=== PATIENT | female | born 1960 | race Caucasian/White ===

== ENCOUNTER 2019-10-23 11:58 | Outpatient (CLI) | payer BC, SELFPAY ==
--- NOTE | 2019-10-23 12:10 | CT_ITS ---
WS: [id number] CT ABDOMEN AND PELVIS NONCONTRAST HISTORY: FLANK PAIN, HEMATURIA TECHNIQUE: Imaging performed through the abdomen and pelvis. Coronal and sagittal reformats are submi tted. All CT scans at [facility] use at least one of these dose optimization techniques: automated exposure control; mA and/or kV adjustment per patient size (includes targeted exams where d ose is matched to clinical indication); or iterative reconstruction. DLP: 1025.39 mGycm COMPARISON: 02/06/2017 Lower thorax: Lung bases are clear. No hiatal hernia. Liver: Mild hepatomegaly. No mass or bile duct dilatation. Gallbladder: Prior cholecystectomy. Pancreas: No abnormality on this unenhanced study. Head and proximal body are poorly visualized due t o adjacent bowel. Spleen: Normal. Adrenal glands: Well-circumscribed LEFT adrenal mass measures 3.0 x 3.0 cm. This mass has been previo usly described over multiple prior years and stable. Consistent with a benign lesion. Normal RIGHT ad renal gland. Right kidney: Normal size with no stones, masses or atrophy. Left kidney: Normal size with no stones, mass or atrophy. Abdominal aorta and IVC are unremarkable. No free fluid, intraperitoneal air or significant lymphadenopathy. GI tract: Moderate fecal retention throughout the GI tract. Cecum is very lonely placed with in the a dnexa. The appendix is negative. No obstruction. No significant diverticular disease. Abdominal wall: Postsurgical changes along the ventral abdominal wall. There is a small hernia contai singh fat along the inferior surgical site. Pelvis: Normal. Uterus is midline. Minimally distended bladder. No adnexal masses. Calcifications in the pelvis are thought to be phleboliths. Osseous structures: Unremarkable. CT/CT kidney stone [id number] IMPRESSION: 1. No renal calcifications or obstruction. 2. Mild hepatomegaly. 3. Long-term stability LEFT adrenal mass. 4. No appendicitis. Report called and message left for report to be reviewed by Subhash Gama.
== END 2019-10-23 11:59 | disposition home or self-care (01) ==
LOC: RADWPI 12:06
PROVIDERS: Family Provider Family Medicine; PCP Family Medicine; Visit Provider Nurse Practitioner Family
DX: R10.9 Unspecified abdominal pain (principal); R31.9 Hematuria, unspecified; R16.0 Hepatomegaly, not elsewhere classified; E27.9 Disorder of adrenal gland, unspecified
CPT/HCPCS: 74176

== ENCOUNTER 2020-03-16 08:46 | Outpatient (CLI) | payer BC, SELFPAY ==
--- NOTE | 2020-03-16 08:56 | FL_ITS ---
WS: [id number] UPPER GI WITH AIR TECHNICAL: Double contrast upper GI with thin and thick barium FLUOROSCOPY TIME: 3.7 minutes CLINICAL INFORMATION: ABDOMINAL PAIN COMPARISON: None. FINDINGS: Swallowing: No aspiration or penetration. Esophagus: Mild esophageal dysmotility with slightly delayed emptying. Small esophageal hiatal hernia . Gastroesophageal reflux: Mild reflux in the upright and supine position to the midesophagus. Stomach: Normal double contrast stomach. Normal gastric emptying. Duodenum: Duodenal bulb and C-loop are normal. Other findings: None. FL/FL upper GI w air* [id number] IMPRESSION: 1. Mild esophageal dysmotility with slightly delayed emptying. No evidence of high-grade stricture or obstructing mass. 2. Small esophageal hiatal hernia with mild reflux visualized in the upright a nd supine position to the midesophagus. 3. Normal double contrast stomach and duodenum. 4. Normal gastric emptying.
== END 2020-03-16 08:47 | disposition home or self-care (01) ==
PROVIDERS: PCP Family Medicine; Visit Provider Nurse Practitioner Family
DX: R10.9 Unspecified abdominal pain (principal); K44.9 Diaphragmatic hernia without obstruction or gangrene
CPT/HCPCS: 74246

== ENCOUNTER 2020-11-23 11:24 | Outpatient (CLI) | payer BC, OTHER, SELFPAY ==
[2020-11-23 12:00] VITALS: BP 198/102; PULSE 83; RESP 16; TEMP 36.8; O2SAT 97; BMI 27.3
[2020-11-23 12:36] VITALS: BP 190/104; PULSE 83; RESP 16; TEMP 36.6; O2SAT 96
[2020-11-23 13:32] VITALS: BP 184/104; PULSE 95; RESP 16; TEMP 36.8
== END 2020-11-23 11:25 | disposition home or self-care (01) ==
LOC: OPS 11:28
PROVIDERS: PCP Family Medicine; Visit Provider Family Medicine
DX: U07.1 COVID-19 (principal)
CPT/HCPCS: 96365

== ENCOUNTER 2021-02-26 11:08 | Inpatient (IN) | payer OTHER, SELFPAY ==
[2021-02-26] VITALS (35 sets, daily range): BP systolic 158–255; BP diastolic 88–150; PULSE 71–92; RESP 12–26; TEMP 36.8; O2SAT 93–100
--- NOTE | 2021-02-26 11:31 | ECG_ITS ---
[facility] Test Date: 2021-02-26 Pat Name: Wanda Balbuena Department: Room: Gender: Female Deputy Editor In Chief: : 1960 Requested By: Camille Ag Order Number: [id number] Stephania MD: Patric Kirkland M.D. Measurements Intervals [place] Rate: 78 P: 40 VT: 145 QRS: -14 QRSD: 101 T: 21 QT: 357 QTc: 407 Interpretive Statements SINUS RHYTHM POSSIBLE LEFT ATRIAL ENLARGEMENT [-0.1mV P-WAVE IN V1/V2] LOW QRS VOLTAGE IN PRECORDIAL LEADS [QRS DEFLECTION < 1.0 mV IN CHEST LEADS] POSSIBLE LEFT VENTRICULAR HYPERTROPHY [VOLTAGE CRITERIA PLUS LAE OR QRS WIDENING] POSSIBLE ANTERIOR MYOCARDIAL INFARCTION , PROBABLY OLD [30 ms Q WAVE IN V3/V4, OR R < 0.2 mV IN V4] Compared to ECG 10/14/2017 22:20:06 Low QRS voltage now present Sinus bradycardia no longer present Myocardial infarct finding still present Electronically Signed On 03-01-2021 17:32:58 ELECTRIC MULE DRIVER by Ptaric Kirkland M.D. [id number]
--- NOTE | 2021-02-26 11:44 | CTR_ITS ---
PROCEDURE INFORMATION: Exam: CT Head Without Contrast Exam date and time: 02/26/2021 11:44 AM Age: 60 years old Clinical indication: Numbness / parasthesia; Bilateral; Patient HX: C/O HTN GREEN and numbness/tingling arms and face; Additional info: Headache associated with numbness TECHNIQUE: Imaging protocol: Computed tomography of the head without contrast. Radiation optimization: All CT scans at this facility use at least one of these dose optimization techniques: automated exposure control; mA and/or kV adjustment per patient size (includes targeted exams where dose is matched to clinical indication); or iterative reconstruction. COMPARISON: CT head wo con* [id number] 10/14/2017 7:41 PM RADIATION DOSE METRICS: Total DLP (mGy-cm): 839.37 FINDINGS: Brain: No acute appearing brain parenchymal abnormality. No intracranial hemorrhage. No extraaxial fluid collections. There is mild diffuse brain atrophy. Cerebral ventricles: No hydrocephalus. Paranasal sinuses: Mucoperiosteal thickening, possibly with a small amount of fluid, in the sphenoid sinus. Mastoid air cells: The mastoid air cells are aerated. Bones/joints: No calvarial fracture. Soft tissues: No acute soft tissue abnormality. CT/CT head wo con* [id number] IMPRESSION: No acute intracranial abnormality. Radiation Dose CTDIVOL = (mGy): DLP = 839.37 (mGy-cm)
[2021-02-26 12:22] LABS: ABG PCO2 34.8 mmHg (35-45); Alveolar-Arterial Oxygen Gradi 3.1 mmHg (5-10); Arterial Blood Gas Hematocrit 47.5 % (37-47); Base Excess ABG 4.2 mmol/L (-2.0-2.0); Blood Gas Allen Test Pos; Blood Gas Operator Identificat GD; Blood Gas Sample Site Radial, left; Blood Gas Sample Type Arterial; Carboxyhemoglobin 0.5 %THgb (0.4-20.1); HCO3 ABG 27.2 mmol/L (22-26); HGB O2 Sat 96.4 % (95-100); Ionized Calcium Level - ABG 1.2 mmol/L (1.1-1.4); Methemoglobin 0.3 % (0.4-1.5); Oxygen Device ROOM AIR; Oxygen Saturation ABG 97.3; PO2 ABG 81.6 mmHg (80.0-100.0); Potassium Level - ABG 3.7 mmol/L (3.5-5.0); Total Hemoglobin 15.5 g/dL (12-16)
[2021-02-26 12:24] LABS: Basophils % 0.5 %; Eosinophils # 0.1 10^3/uL (0.0-0.8); Eosinophils % 0.9 %; Hematocrit 43.7 % (37.0-47.0); Hemoglobin 14.8 g/dL (11.5-15.3); Mean Corpuscular HGB Conc 33.9 g/dL (30.0-36.0); Mean Corpuscular Hemoglobin 30.2 pg (28.0-34.0); Mean Corpuscular Volume 89.2 fl (81-99); Mean Platelet Volume 12.3 fL (7.4-10.4); Monocytes # 0.6 10^3/uL (0.2-0.9); Monocytes % 7.3 %; Neutrophils # 5.32 10^3/uL (1.8-7.7); Neutrophils % 65.9 %; Nucleated Red Blood Cells % 0 %; Platelet Count 244 10^3/cmm (130-400); Red Cell Distribution Width 13.1 % (12.1-15.1); White Blood Count 8.1 10^3/uL (4.0-10.0)
--- NOTE | 2021-02-26 12:30 | ED_ITS ---
HPI - Neuro Symptoms/Deficit General: Chief Complaint: ER Hold Stated Complaint: HTN:H/A,NUMBNESS,TINGLING IN FINGERS Time Seen by Provider: 02/26/21 11:53 History of Present Illness: HPI Narrative: Ms Balbuena is a 60-year-old lady with history of hypertension who presents to the emergency department due to numbness and cramping. She reports a longstanding history of intermittent episodes with low potassium that typically result in similar symptoms. Few nights ago she started having symptoms however after drinking some coffee this improved. Over the past 24 hours she has had near constant symptoms. She describes weakness, headache, generalized malaise, and tingling throughout the body as well as muscle cramps. There is no focality of her symptoms. These feel similar to prior episodes. Intensity is moderate to severe. Course has persisted. No other specific exacerbating or relieving factors identified. Review of Systems General: Reports: 10 or more systems reviewed and unremarkable except in HPI and below PFSH ED PFSH: Medical History (Updated 03/02/21 @ 00:08 by Casey Gaona MD) Diabetes Hypertension Physical Exam Narrative: EXAM NARRATIVE: GENERAL/CONSTITUTIONAL -mildly ill-appearing. No acute distress. Eyes - PERRL, no conjunctival injection ENMT - Atraumatic external nose and ears. Moist mucous membranes NECK - supple. trachea midline CARDIOVASCULAR - regular rate and rhythm. Peripheral pulses 2+ and equal RESPIRATORY -clear to auscultation bilaterally. ABDOMEN/GI - Nontender/Nondistended. MSK - Extremities without obvious deformity or tenderness to palpation SKIN - Warm, Dry NEURO - alert and appropriately oriented. Cranial nerves II through XII intact. Coordination, gait, sensation, motor intact with exception of subjective bilateral tingling in the hands and feet. These are identical on both sides as reported by the patient. PSYCH - Appropriate mood and affect Course ED course: - Patient was seen and evaluated by me at bedside - Patient placed on cardiac monitors, IV access obtained - Initial evaluation notable for exam as noted above, no focal neurologic findings. Patient is hypertensive. - Labs notable for no significant hematologic abnormality. Metabolic panel without acute abnormality or evidence of endorgan dysfunction with exception of neurologic symptoms. Potassium is within normal range however additional potassium ordered given possibility of increased susceptibilities/sensitivity to potassium below 4. - Imaging notable for no acute abnormality identified on head CT. Chest x-ray negative. Given that there are no focal findings consistent with a vascular distribution I do not feel that ED CTA imaging is needed at this time. - Attempted multiple rounds of IV antihypertensive medications without significant improvement or sustained improvement. - Upon serial reexamination after treatment the patient was similar - Based on patient history, evaluation, labs, and imaging as interpreted the most likely cause of the patient's condition is hypertensive urgency versus emergency - The patient was initially reticent for admission however after further discussion was amenable to admission. - Discussed case with hospitalist service, patient to be admitted to the hospital for further management and evaluation. Ray valle ordered. - Patient was admitted without further deterioration or significant events. Vital Signs: Vital signs: Vital Signs Temperature 97.5 F L 02/28/21 13:37 Pulse Rate 55 L 02/28/21 13:37 Respiratory Rate 16 02/28/21 13:37 Blood Pressure 168/90 02/28/21 13:37 Pulse Oximetry 96 02/28/21 13:37 MDM - Neuro Symptoms/Deficit Medical Records: Attestation: I reviewed the patient's medical records. Lab Data: Attestation: I reviewed the patient's lab results. Labs: Lab Results 02/26/21 02/26/21 02/26/21 12:05 12:15 12:15 WBC 8.1 10^3/uL 10^3/ uL (4.0-10.0) RBC 4.90 10^6/uL 10^6 /uL (4.1-5.3) Hgb 14.8 g/dL g/dL (11.5-15.3) Hct 43.7 % % (37.0-47.0) MCV 89.2 fl fl (81-99) MCH 30.2 pg pg (28.0-34.0) MCHC 33.9 g/dL g/dL (30.0-36.0) RDW 13.1 % % (12.1-15.1) Plt Count 244 10^3/cmm 10^3 /cmm (130-400) MPV 12.3 fL H fL (7.4-10.4) Neut % (Auto) 65.9 % % Lymph % (Auto) 25.0 % % [place] % (Auto) 7.3 % % Eos % (Auto) 0.9 % % Baso % (Auto) 0.5 % % Neut # (Auto) 5.32 10^3/uL 10^3 /uL (1.8-7.7) Lymph # (Auto) 2.0 10^3/uL 10^3/ uL (0.8-4.8) [place] # (Auto) 0.6 10^3/uL 10^3/ uL (0.2-0.9) Eos # (Auto) 0.1 10^3/uL 10^3/ uL (0.0-0.8) Baso # (Auto) 0.0 10^3/uL 10^3/ uL (0.0-0.1) Nucleated RBC % (a uto) 0 % % Nucleated RBCs # 0.0 /100WBC /100W BC Specimen Type Arterial Sample Site Radial, left ABG pH 7.50 H (7.35-7.45) ABG pCO2 34.8 mmHg L mmHg (35-45) ABG pO2 81.6 mmHg mmHg (80.0-100.0) ABG HCO3 27.2 mmol/L H mmo l/L (22-26) ABG O2 Saturation 97.3 ABG Base Excess 4.2 mmol/L H mmol /L (-2.0-2.0) Chele Test Pos A-a O2 Gradient 3.1 mmHg L mmHg (5-10) Hematocrit 47.5 % H % (37-47) Hgb O2 Saturation 96.4 % % (95-100) Carboxyhemoglobin 0.5 %THgb %THgb (0.4-20.1) Methemoglobin 0.3 % L % (0.4-1.5) Total Hemoglobin 15.5 g/dL g/dL (12-16) Sodium 143.0 mmol/L mmol /L 141 mmol/L mmol/L (131-143) (136-145) Potassium 3.7 mmol/L mmol/L 3.7 mmol/L mmol/L (3.5-5.0) (3.5-5.1) Glucose 109.0 mg/dL mg/dL 103 mg/dL mg/dL (70-115) (65-115) Ionized Calcium 1.2 mmol/L mmol/L (1.1-1.4) O2 Delivery Device Room air Fine Arts Instructor ID Gd Chloride 103 mmol/L mmol/L (98-107) Carbon Dioxide 23 mmol/L mmol/L (22-29) Anion Gap 18.7 (5-19) BUN 12 mg/dL mg/dL (8-23) Creatinine 0.8 mg/dL mg/dL (0.5-0.9) GFR Calculation 72.9 mL/min L mL/ min (90-130) POC Glucose Estimat Average Gl ucose Hemoglobin A1c Calculated Osmolal ity 292 mOsm/kg mOsm/ kg (285-295) Calcium 8.8 mg/dL mg/dL (8.5-10.5) Magnesium 1.8 mg/dL mg/dL (1.7-2.3) Total Bilirubin AST ALT Alkaline Phosphata se Troponin T Baselin e Troponin T 120 Min [place] Delta Troponin T Troponin T Hi Sens 6Hr Troponin T Hi Sens 6Hr Delta Total Protein Albumin Globulin Triglycerides Cholesterol LDL Cholesterol, C alc HDL Cholesterol LDL/HDL Ratio Cholesterol/HDL Ra nirmala TSH Urine Color Urine Appearance Urine pH Ur Specific Gravit y Urine Protein Urine Glucose (UA) Urine Ketones Urine Blood Urine Nitrate Urine Bilirubin Urine Urobilinogen Ur Leukocyte Doris ase Urine RBC Urine WBC Ur Squamous Epith Cells Amorphous Sediment Urine Bacteria Influenza Type A A g Influenza Type B A g SARS-CoV-2 Ag (Rap id) 02/26/21 02/26/21 02/26/21 12:15 12:15 14:20 WBC RBC Hgb Hct MCV MCH MCHC RDW Plt Count MPV Neut % (Auto) Lymph % (Auto) [place] % (Auto) Eos % (Auto) Baso % (Auto) Neut # (Auto) Lymph # (Auto) [place] # (Auto) Eos # (Auto) Baso # (Auto) Nucleated RBC % (a uto) Nucleated RBCs # Specimen Type Sample Site ABG pH ABG pCO2 ABG pO2 ABG HCO3 ABG O2 Saturation ABG Base Excess Chele Test A-a O2 Gradient Hematocrit Hgb O2 Saturation Carboxyhemoglobin Methemoglobin Total Hemoglobin Sodium Potassium Glucose Ionized Calcium O2 Delivery Device Fine Arts Instructor ID Chloride Carbon Dioxide Anion Gap BUN Creatinine GFR Calculation POC Glucose Estimat Average Gl ucose Hemoglobin A1c Calculated Osmolal ity Calcium Magnesium Total Bilirubin AST ALT Alkaline Phosphata se Troponin T Baselin e 7 ng/L ng/L (0-10) Troponin T 120 Min [place] 7.94 ng/L ng/L (0-10) Delta Troponin T 0.94 ABS# ABS# (0-10) Troponin T Hi Sens 6Hr Troponin T Hi Sens 6Hr Delta Total Protein Albumin Globulin Triglycerides Cholesterol LDL Cholesterol, C alc HDL Cholesterol LDL/HDL Ratio Cholesterol/HDL Ra nirmala TSH 0.85 uIU/mL uIU/m L (0.27-4.20) Urine Color Urine Appearance Urine pH Ur Specific Gravit y Urine Protein Urine Glucose (UA) Urine Ketones Urine Blood Urine Nitrate Urine Bilirubin Urine Urobilinogen Ur Leukocyte Doris ase Urine RBC Urine WBC Ur Squamous Epith Cells Amorphous Sediment Urine Bacteria Influenza Type A A g Influenza Type B A g SARS-CoV-2 Ag (Rap id) 02/26/21 02/26/21 02/26/21 16:20 16:20 18:00 WBC RBC Hgb Hct MCV MCH MCHC RDW Plt Count MPV Neut % (Auto) Lymph % (Auto) [place] % (Auto) Eos % (Auto) Baso % (Auto) Neut # (Auto) Lymph # (Auto) [place] # (Auto) Eos # (Auto) Baso # (Auto) Nucleated RBC % (a uto) Nucleated RBCs # Specimen Type Sample Site ABG pH ABG pCO2 ABG pO2 ABG HCO3 ABG O2 Saturation ABG Base Excess Chele Test A-a O2 Gradient Hematocrit Hgb O2 Saturation Carboxyhemoglobin Methemoglobin Total Hemoglobin Sodium Potassium Glucose Ionized Calcium O2 Delivery Device Fine Arts Instructor ID Chloride Carbon Dioxide Anion Gap BUN Creatinine GFR Calculation POC Glucose Estimat Average Gl ucose Hemoglobin A1c Calculated Osmolal ity Calcium Magnesium Total Bilirubin AST ALT Alkaline Phosphata se Troponin T Baselin e Troponin T 120 Min [place] Delta Troponin T Troponin T Hi Sens 6Hr 6.66 ng/L ng/L (0-10) Troponin T Hi Sens 6Hr Delta -0.34 ng/L L ng/L (0-12) Total Protein Albumin Globulin Triglycerides Cholesterol LDL Cholesterol, C alc HDL Cholesterol LDL/HDL Ratio Cholesterol/HDL Ra nirmala TSH Urine Color Urine Appearance Urine pH Ur Specific Gravit y Urine Protein Urine Glucose (UA) Urine Ketones Urine Blood Urine Nitrate Urine Bilirubin Urine Urobilinogen Ur Leukocyte Doris ase Urine RBC Urine WBC Ur Squamous Epith Cells Amorphous Sediment Urine Bacteria Influenza Type A A g Negative (Negative) Influenza Type B A g Negative (Negative) SARS-CoV-2 Ag (Rap id) Negative (Negative) 02/26/21 02/26/21 02/26/21 20:50 22:41 Unknown WBC RBC Hgb Hct MCV MCH MCHC RDW Plt Count MPV Neut % (Auto) Lymph % (Auto) [place] % (Auto) Eos % (Auto) Baso % (Auto) Neut # (Auto) Lymph # (Auto) [place] # (Auto) Eos # (Auto) Baso # (Auto) Nucleated RBC % (a uto) Nucleated RBCs # Specimen Type Sample Site ABG pH ABG pCO2 ABG pO2 ABG HCO3 ABG O2 Saturation ABG Base Excess Chele Test A-a O2 Gradient Hematocrit Hgb O2 Saturation Carboxyhemoglobin Methemoglobin Total Hemoglobin Sodium Potassium Glucose Ionized Calcium O2 Delivery Device Fine Arts Instructor ID Chloride Carbon Dioxide Anion Gap BUN Creatinine GFR Calculation POC Glucose 206 mg/dL H mg/dL 214 mg/dL H mg/dL (70-110) (70-110) Estimat Average Gl ucose Hemoglobin A1c Calculated Osmolal ity Calcium Magnesium Total Bilirubin AST ALT Alkaline Phosphata se Troponin T Baselin e Troponin T 120 Min [place] Troponin T Troponin T Hi Sens 6Hr Troponin T Hi Sens 6Hr [place] Total Protein Albumin Globulin Triglycerides Cholesterol LDL Cholesterol, C alc HDL Cholesterol LDL/HDL Ratio Cholesterol/HDL Ra nirmala TSH Urine Color Straw (Yellow) Urine Appearance Clear (CLEAR) Urine pH 7 (5-7) Ur Specific Gravit y 1.010 (1.005-1.030) Urine Protein Neg (Negative) Urine Glucose (UA) 1+ H (Normal) Urine Ketones Negative (Negative) Urine Blood 2+ H (Negative) Urine Nitrate Negative (Negative) Urine Bilirubin Neg (Negative) Urine Urobilinogen Norm mg/dL mg/dL (Negative) Ur Leukocyte Doris ase Negative (Negative) Urine RBC 0-4 /hpf H /hpf (0-2) Urine WBC None /hpf /hpf (0-5) Ur Squamous Epith Cells 0-4 /hpf H /hpf (0-5) Amorphous Sediment Not Reportable Urine Bacteria 1+ /hpf H /hpf (NONE) Influenza Type A A g Influenza Type B A g SARS-CoV-2 Ag (Rap id) 02/27/21 02/27/21 02/27/21 05:35 05:35 05:35 WBC 9.4 10^3/uL 10^3/ uL (4.0-10.0) RBC 4.85 10^6/uL 10^6 /uL (4.1-5.3) Hgb 14.3 g/dL g/dL (11.5-15.3) Hct 44.1 % % (37.0-47.0) MCV 90.9 fl fl (81-99) MCH 29.5 pg pg (28.0-34.0) MCHC 32.4 g/dL g/dL (30.0-36.0) RDW 13.2 % % (12.1-15.1) Plt Count 229 10^3/cmm 10^3 /cmm (130-400) MPV 12.6 fL H fL (7.4-10.4) Neut % (Auto) 65.8 % % Lymph % (Auto) 25.6 % % [place] % (Auto) 6.1 % % Eos % (Auto) 1.6 % % Baso % (Auto) 0.6 % % Neut # (Auto) 6.19 10^3/uL 10^3 /uL (1.8-7.7) Lymph # (Auto) 2.4 10^3/uL 10^3/ uL (0.8-4.8) [place] # (Auto) 0.6 10^3/uL 10^3/ uL (0.2-0.9) Eos # (Auto) 0.2 10^3/uL 10^3/ uL (0.0-0.8) Baso # (Auto) 0.1 10^3/uL 10^3/ uL (0.0-0.1) Nucleated RBC % (a uto) 0 % % Nucleated RBCs # 0.0 /100WBC /100W BC Specimen Type Sample Site ABG pH ABG pCO2 ABG pO2 ABG HCO3 ABG O2 Saturation ABG Base Excess Chele Test A-a O2 Gradient Hematocrit Hgb O2 Saturation Carboxyhemoglobin Methemoglobin Total Hemoglobin Sodium 136 mmol/L mmol/L (136-145) Potassium 4.5 mmol/L mmol/L (3.5-5.1) Glucose 193 mg/dL H mg/dL (65-115) Ionized Calcium O2 Delivery Device Fine Arts Instructor ID Chloride 100 mmol/L mmol/L (98-107) Carbon Dioxide 25 mmol/L mmol/L (22-29) Anion Gap 15.5 (5-19) BUN 10 mg/dL mg/dL (8-23) Creatinine 0.8 mg/dL mg/dL (0.5-0.9) GFR Calculation 72.9 mL/min L mL/ min (90-130) POC Glucose Estimat Average Gl ucose 206 Hemoglobin A1c 8.8 % H % (4.0-6.0) Calculated Osmolal ity 286 mOsm/kg mOsm/ kg (285-295) Calcium 8.6 mg/dL mg/dL (8.5-10.5) Magnesium Total Bilirubin 0.2 mg/dL mg/dL (0.15-1.2) AST 25 U/L U/L (0-32) ALT 27 U/L U/L (0-33) Alkaline Phosphata se 86 IU/L IU/L (35-105) Troponin T Baselin e Troponin T 120 Min [place] Troponin T Troponin T Hi Sens 6Hr Troponin T Hi Sens 6Hr [place] Total Protein 7.5 g/dL g/dL (6.6-8.7) Albumin 4.2 g/dL g/dL (3.5-5.2) Globulin 3.3 g/dL g/dL (1.3-4.6) Triglycerides 134 mg/dL mg/dL (0-150) Cholesterol 208 mg/dL H mg/dL (0-200) LDL Cholesterol, C alc 131 mg/dL H mg/dL (50-129) HDL Cholesterol 50 mg/dL L mg/dL (60-100) LDL/HDL Ratio 2.62 RATIO RATIO (0.00-3.22) Cholesterol/HDL Ra nirmala 4.16 mg/dL mg/dL (0.0-4.40) TSH Urine Color Urine Appearance Urine pH Ur Specific Gravit y Urine Protein Urine Glucose (UA) Urine Ketones Urine Blood Urine Nitrate Urine Bilirubin Urine Urobilinogen Ur Leukocyte Doris ase Urine RBC Urine WBC Ur Squamous Epith Cells Amorphous Sediment Urine Bacteria Influenza Type A A g Influenza Type B A g SARS-CoV-2 Ag (Rap id) EKG Data^: EKG 1: Attestation: I personally reviewed and interpreted this EKG as follows: EKG interpretation date: 02/26/21 EKG interpretation time: 12:18 Interpretation: Twelve-lead EKG shows a regular rhythm at a rate of 78. MD interval 145, QRS duration 101, QTc 407. Left axis deviation. Interpretation: Sinus rhythm. Nonspecific ST segment abnormalities. Discharge Plan Discharge Patient Disposition: Admitted As Inpatient Admit Provider: Justin Osuna Clinical Impression: Hypertensive emergency, Tingling Condition: Stable Discharge Diet: Cardiac Discharge Activity: Resume usual activity Coding Level of Care Code ED Mold Cutting Machine Operator for Shelton Corona
[2021-02-26 12:49] LABS: Anion Gap 18.7 (5-19); Blood Urea Nitrogen 12 mg/dL (8-23); Calcium 8.8 mg/dL (8.5-10.5); Carbon Dioxide 23 mmol/L (22-29); Chloride 103 mmol/L (98-107); Glomerular Filtration Rate 72.9 mL/min (90-130); Glucose 103 mg/dL (65-115); Magnesium 1.8 mg/dL (1.7-2.3); Osmolality Calculated 292 mOsm/kg (285-295); Potassium 3.7 mmol/L (3.5-5.1); Sodium 141 mmol/L (136-145)
[2021-02-26] MEDS: potassium chloride ER 20 mEq Tablet 40 MEQ PO (13:20)
[2021-02-26] MEDS: acetaminophen 1,000 MG/100 ML PIGGYBACK 400 MG IV (13:28)
[2021-02-26] MEDS: labetalol 5 mg/mL SDV 20mL 20 MG IVP ×2 (13:31→19:12)
[2021-02-26] MEDS: magnesium sulfate premix 2 GM/50 ML PIGGYBACK IV (13:33)
[2021-02-26 13:37] LABS: Thyroid Stimulating Hormone 0.85 uIU/mL (0.27-4.20)
[2021-02-26] MEDS: cloNIDine 0.1 mg Tablet 0.3 MG PO (13:49)
[2021-02-26 14:03] LABS: Troponin(5th) Baseline 7 ng/L (0-10)
[2021-02-26 14:06] LABS: Bilirubin Urine Neg (Negative); Blood Urine 2+ (Negative); Glucose Urine UA 1+ (Normal); Ketones Urine Negative (Negative); Nitrate Urine Negative (Negative); Protein Urine Neg (Negative); Urine Appearance Clear (CLEAR); Urine Color Straw (Yellow); Urobilinogen Urine Norm (Negative); pH Urine 7 (5-7)
[2021-02-26 14:07] LABS: Add Urine Microscopic? YES; Leukocyte Esterase Urine Negative (Negative)
[2021-02-26 14:24] LABS: Bacteria Urine 1+ /hpf; RBC Urine 0-4 /hpf (0-2); Squamous Epithelial Cell Urine 0-4 /hpf (0-5)
[2021-02-26 14:25] LABS: Add Urine Culture? No
[2021-02-26] MEDS: fentaNYL 50 mcg/mL INJ 2mL IVP (14:53)
[2021-02-26] MEDS: ondansetron 2 mg/ML SDV 2 mL 4 MG IVP (15:07)
[2021-02-26] MEDS: sodium chloride 0.9% 1,000 ML 999 ML IV (15:08)
[2021-02-26 15:15] LABS: Troponin 5 2HR 7.94 ng/L (0-10); Troponin 5 2HR Delta 0.94 ABS# (0-10)
--- NOTE | 2021-02-26 15:46 | XRR_ITS ---
PROCEDURE INFORMATION: Exam: XR Chest Exam date and time: 02/26/2021 3:46 PM Age: 60 years old Clinical indication: Patient HX: History--shortness of breath, high blood pressure, elevated pulse; Additional info: SOB TECHNIQUE: Imaging protocol: XR of the chest. Views: 1 view. COMPARISON: CR Chest 1 [place] [id number] 10/14/2017 4:53 PM FINDINGS: Lungs: Unremarkable. No consolidation. Pleural spaces: Unremarkable. No pleural effusion. No pneumothorax. Heart/Mediastinum: Unremarkable. No cardiomegaly. Bones/joints: Unremarkable. XR/XR chest 1V portable [id number] IMPRESSION: No acute findings. Radiation Dose CTDIVOL = (mGy): DLP = (mGy-cm)
[2021-02-26 17:00] LABS: Influenza A by IFA Negative (Negative); Influenza B by IFA Negative (Negative); SARS Covid-2 Antigen Negative (Negative)
[2021-02-26] MEDS: ketorolac 30 mg/mL INJ 15 MG IVP (17:41)
[2021-02-26 18:30] LABS: Troponin 5 6HR 6.66 ng/L (0-10)
[2021-02-26 18:34] LABS: Troponin 5 6HR Delta -0.34 ng/L (0-12)
[2021-02-26] MEDS: morphine 4 mg/mL SDV 1 mL IVP (19:12)
[2021-02-26] MEDS: nicardipine 20 MG/200 ML PREMIX 50 MG IV (19:40)
[2021-02-26 20:53] LABS: Glucose Point of Care 206 mg/dL (70-110)
[2021-02-26 22:44] LABS: Glucose Point of Care 214 mg/dL (70-110)
[2021-02-26] MEDS: insulin glargine 100 units/1 mL 50 UNIT SUBCUT (23:33)
[2021-02-27] VITALS (39 sets, daily range): BP systolic 89–229; BP diastolic 45–167; PULSE 64–104; RESP 11–28; O2SAT 84–98
[2021-02-27] MEDS: ondansetron 2 mg/ML SDV 2 mL 4 MG IVP (00:33)
[2021-02-27] MEDS: nicardipine 20 MG/200 ML PREMIX 30 MG IV (01:00)
[2021-02-27] MEDS: cloNIDine 0.1 mg Tablet 0.3 MG PO ×3 (01:02→18:01)
[2021-02-27] MEDS: cyclobenzaprine 10 mg Tablet PO (05:42)
[2021-02-27 05:47] LABS: Basophils # 0.1 10^3/uL (0.0-0.1); Basophils % 0.6 %; Eosinophils # 0.2 10^3/uL (0.0-0.8); Eosinophils % 1.6 %; Hematocrit 44.1 % (37.0-47.0); Hemoglobin 14.3 g/dL (11.5-15.3); Lymphocytes # 2.4 10^3/uL (0.8-4.8); Lymphocytes % 25.6 %; Mean Corpuscular HGB Conc 32.4 g/dL (30.0-36.0); Mean Corpuscular Hemoglobin 29.5 pg (28.0-34.0); Mean Corpuscular Volume 90.9 fl (81-99); Mean Platelet Volume 12.6 fL (7.4-10.4); Monocytes # 0.6 10^3/uL (0.2-0.9); Monocytes % 6.1 %; Neutrophils # 6.19 10^3/uL (1.8-7.7); Neutrophils % 65.8 %; Nucleated Red Blood Cells % 0 %; Platelet Count 229 10^3/cmm (130-400); Red Blood Count 4.85 10^6/uL (4.1-5.3); Red Cell Distribution Width 13.2 % (12.1-15.1); White Blood Count 9.4 10^3/uL (4.0-10.0)
[2021-02-27 06:27] LABS: Alanine Aminotransferase 27 U/L (0-33); Albumin Level 4.2 g/dL (3.5-5.2); Alkaline Phosphatase 86 IU/L (35-105); Anion Gap 15.5 (5-19); Aspartate Amino Transferase 25 U/L (0-32); Blood Urea Nitrogen 10 mg/dL (8-23); Calcium 8.6 mg/dL (8.5-10.5); Carbon Dioxide 25 mmol/L (22-29); Chloride 100 mmol/L (98-107); Chol HDL Ratio 4.16 mg/dL (0.0-4.40); Cholesterol 208 mg/dL (0-200); Estmated Average Glucose 206; Globulin 3.3 g/dL (1.3-4.6); Glomerular Filtration Rate 72.9 mL/min (90-130); Glucose 193 mg/dL (65-115); HDL Cholesterol 50 mg/dL (60-100); Hemoglobin A1C 8.8 % (4.0-6.0); LDL Cholesterol Calculated 131 mg/dL (50-129); LDL HDL Ratio 2.62 RATIO (0.00-3.22); Osmolality Calculated 286 mOsm/kg (285-295); Potassium 4.5 mmol/L (3.5-5.1); Sodium 136 mmol/L (136-145); Total Bilirubin 0.2 mg/dL (0.15-1.2); Total Protein 7.5 g/dL (6.6-8.7); Triglycerides 134 mg/dL (0-150)
--- NOTE | 2021-02-27 06:34 | P.HP_ITS ---
Providers/Chief Complaint Admitting Physician: Katina Acuña MD Primary Care Provider: Ben Hernández MD Chief Complaint: HTN:H/A,NUMBNESS,TINGLING IN FINGERS History of Present Illness Wanda Balbuena is a 60 year old female that presented to ER with c/o weakness, headache, generalized malaise, and tingling throughout the body. She was noted to have elevated BP 255/140 mmhg for which she received labetalol pushes without significant change in BP. She wass started on nicardipine drip , at time of assessment BP is improved to 168/90 mmhg. She was also given clonidine 0.3mg earlier this afternoon. CT head negative. EKG without significant changes, negative troponin series. Headache improved with better BP control Review of Systems General: Reports: 10 or more systems reviewed and unremarkable except in HPI and below Const: Denies: fever(s), chills or body aches Eyes: Denies: change in vision, blurry vision or photophobia ENMT: Reports: hoarseness; Denies: throat pain, enlarged tonsils, odynophagia or nasal congestion Card: Denies: chest pain, palpitations, irregular heart rhythm, edema, swelling of feet/ankles, lightheadedness, pre-syncope, dyspnea on exertion or orthopnea Resp: Denies: dyspnea, productive cough, non-productive cough, wheezing, stridor, pain on inspiration, change in phlegm color, hemoptysis or chest congestion GI: Denies: abdominal pain, nausea, vomiting, hematemesis, coffee ground emesis, dysphagia, heartburn, diarrhea, constipation, GI cramping, change in stool character, hematochezia or melena : Denies: flank pain, difficulty voiding, dysuria, urinary frequency, urinary urgency, urinary hesitancy or hematuria Musc: Denies: neck pain, back pain, extremity pain, joint swelling, joint warmth or deformity Neuro: Denies: headache(s), numbness in extremities, weakness in extremities, sensory changes, difficulty walking, frequent falls, dizziness, vertigo, behavioral changes, Slurred speech present or seizure-like activity Psych: Denies: anxiety, depression, suicidal ideation or homicidal ideation Endo: Denies: polyuria, polydipsia, tired all the time, cold intolerance or hot flashes Stephen/Lymph: Denies: easy bruising or easy bleeding Medications/Allergies Home Medications Medication Instructions Recorded Confirmed Last Taken Type clonidine HCl 0.3 mg PO TID 02/27/21 02/27/21 Unknown History insulin glargine [Lantus U-100 50 unit SUBCUT BEDTIME 02/27/21 02/27/21 Unknown History Insulin] insulin regular human [Novolin R 10 unit SUBCUT DIRECTED 02/27/21 02/27/21 Unknown History Regular U-100 Insuln] Allergies Allergy/AdvReac Type Severity Reaction Status Date / Time amlodipine Allergy ADR-Headach Verified 02/27/21 00:35 e hydralazine Allergy Unknown Verified 02/27/21 01:17 hydromorphone Allergy ADR-Vomitin Verified 02/26/21 11:26 g lisinopril Allergy ADR-Cough Verified 02/26/21 22:39 metoprolol Allergy ADV-Weaknes Verified 02/27/21 00:53 s Penicillins Allergy Unknown Verified 02/26/21 11:26 PFSH Acute PFSH: Medical History (Updated 02/27/21 @ 06:42 by Katina Acuña MD) Diabetes Hypertension Vitals/I&O/Wt Last Vital Signs Temp 98.3 F 02/26/21 11:21 Pulse 65 02/27/21 06:15 Resp 14 02/27/21 06:15 BP 136/75 02/27/21 06:15 Pulse Ox 95 02/27/21 06:15 02/26/21 02/26/21 02/27/21 14:59 22:59 06:59 Intake Total 150 / 150 1046.25 / 1196.25 273.75 / 1470.00 Balance 150 / 150 1046.25 / 1196.25 273.75 / 1470.00 Weight last 48 hrs Weight 85.275 kg Physical Exam Narrative: EXAM NARRATIVE: General: No acute distress, AO x3 HEENT: PERRLA, pupils bilaterally equal and reactive, pallors not present Chest: Normal vesicular breath sounds, no added sounds, equal good air entry bilaterally CVS: S1-S2 regular, no murmurs, no tachycardia, no gallops, no rubs Abdomen: Soft, nontender, no organomegaly, bowel sounds present Neuro: No focal deficits, no facial deformity, AO x3, power 5/5 in all limbs Data : 02/27/21 05:35 02/27/21 05:35 A&P Assessment and plan (1) Hypertensive urgency: Patient presenting BP >250 systolic, started on nicardipine infusion No signs of end organ damage at this time, normal renal function .CT head neg ative for infarct, no new changes on EKG. Headcahe and tingling improved with BP control Start amlodipine 10mg and lisinopril 10mg overlapping with nicardipine drip for BP control and to transition off the infusion echocardiogram and carotid duplex ordered from ER, will await results of testing lipid panel for risk stratification continue home dose of lantus 50U and sliding scale insulin Status: Acute Attestations Medical Necessity Statement*: Anticipate care to cross >2midnight for above defined care Coding Level of Care Code Acute Roving Technician for Chg Fwd Diagnoses Hypertensive urgency I16.0
[2021-02-27 07:33] LABS: Glucose Point of Care 160 mg/dL (70-110)
[2021-02-27] MEDS: pantoprazole DR 40 mg Tablet PO (09:15)
[2021-02-27] MEDS: insulin lispro 100 unit/1 mL SUBCUT ×3 (09:15→17:58)
--- NOTE | 2021-02-27 09:27 | PC.NURSE ---
0900- Meds/Insulin given prior to breakfast. Alter and oriented. Continue to monitor
[2021-02-27 10:15] LABS: Add Urine Microscopic? YES; Bilirubin Urine Neg (Negative); Blood Urine 2+ (Negative); Glucose Urine UA Trace (Normal); Ketones Urine Negative (Negative); Leukocyte Esterase Urine Negative (Negative); Nitrate Urine Negative (Negative); Protein Urine Neg (Negative); Urine Appearance Clear (CLEAR); Urine Color Straw (Yellow); Urobilinogen Urine Norm (Negative); WBC Urine RARE /hpf (0-5); pH Urine 5 (5-7)
[2021-02-27 10:16] LABS: Add Urine Culture? No; Bacteria Urine TRACE /hpf; RBC Urine 0-4 /hpf (0-2); Squamous Epithelial Cell Urine 0-4 /hpf (0-5)
--- NOTE | 2021-02-27 10:28 | PC.NURSE ---
Dr Bishop, in room consulting with pt.. Dr Bishop, states he will be changing medication orders and not to given the current orders.
[2021-02-27] MEDS: cyclobenzaprine 10 mg Tablet 5 MG PO (10:56)
--- NOTE | 2021-02-27 11:03 | PC.NURSE ---
Dc'd Right AC IV. New IV in Left forearm.
[2021-02-27 13:53] LABS: Glucose Point of Care 228 mg/dL (70-110)
[2021-02-27] MEDS: TRAMadol 50 mg Tablet PO (14:28)
[2021-02-27] MEDS: dilTIAZem 30 mg Tablet PO ×2 (14:28→20:59)
--- NOTE | 2021-02-27 14:46 | P.PN_ITS ---
Subjective Subjective: Interval history: Patient was seen this morning, she continues to complain of diffuse charley horses, no lightheadedness, no dizziness, no chest pain, no palpitations, no blurry vision, is having a headache, she tells me that she takes clonidine 0.3 mg 3 times daily, she has allergies to many of the other blood pressure medications precluding her uses Vitals/I&O/Wt Last Vital Signs Temp 98.3 F 02/26/21 11:21 Pulse 92 02/27/21 13:53 Resp 14 02/27/21 13:53 BP 198/102 02/27/21 12:19 Pulse Ox 95 02/27/21 13:53 02/26/21 02/27/21 02/27/21 22:59 06:59 14:59 Intake Total 1046.25 / 1196.25 273.75 / 1470.00 Balance 1046.25 / 1196.25 273.75 / 1470.00 Weight last 48 hrs Weight 85.275 kg Physical Exam Const: COMMON NORMALS: no acute distress and patient oriented x3 Resp: COMMON NORMALS: normal respiratory effort, No retractions, No use of accessory muscles and clear to auscultation bilaterally AUSCULTATION: clear to auscultation bilaterally Cardio: COMMON NORMALS: regular rate, regular rhythm, S1 normal heart sound present and S2 normal heart sound present RATE: regular rate RHYTHM: regular rhythm HEART SOUNDS: S1 normal heart sound present and S2 normal heart sound present GI: COMMON NORMALS: Normal to inspection, nondistended, normoactive bowel sounds present, Soft to palpation and non-tender PALPATION: Yes Soft to palpation Extremity: COMMON NORMALS: no pedal edema Neuro: COMMON NORMALS: patient oriented x3 Psych: COMMON NORMALS: mental status grossly normal Data : 02/27/21 05:35 02/27/21 05:35 A&P Assessment and plan (1) Hypertensive urgency: Patient presenting BP >250 systolic, started on nicardipine infusion No signs of end organ damage at this time, normal renal function .CT head negative for infarct, no new changes on EKG. Headcahe and tingling improved with BP control echocardiogram and carotid duplex ordered from ER, will await results of testing A1c 8.8, cholesterol 2 8, LDL 131 Continue clonidine 0.3 mg every 8 hours Chlorthalidone 25 mg daily Cardizem 30 mg every 8 hours continue home dose of lantus 50U and sliding scale insulin Status: Acute Attestations Medical Necessity Statement*: Patient requires hospitalization for hypertensive urgency Coding Level of Care Code Acute Greens Keeper for [facility] F[facility] Diagnoses Hypertensive urgency I16.0
[2021-02-27 16:40] LABS: Anion Gap 13.2 (5-19); Blood Urea Nitrogen 13 mg/dL (8-23); Calcium 8.5 mg/dL (8.5-10.5); Carbon Dioxide 27 mmol/L (22-29); Chloride 99 mmol/L (98-107); Glomerular Filtration Rate 72.9 mL/min (90-130); Glucose 225 mg/dL (65-115); Osmolality Calculated 287 mOsm/kg (285-295); Phosphorus 3.7 mg/dL (2.5-4.5); Potassium 4.2 mmol/L (3.5-5.1); Sodium 135 mmol/L (136-145)
[2021-02-27 16:53] LABS: Glucose Point of Care 227 mg/dL (70-110)
[2021-02-27] MEDS: acetaminophen 325 mg Tablet 650 MG PO (18:16)
--- NOTE | 2021-02-27 18:34 | USCV_ITS ---
Wanda Balbuena Age: 60 Gender: F : 1960 Exam Date: 02/27/2021 07:14 Ordering Phys: Casey Gaona MD Technologist: Lauren Mohr Exam Location: [facility] – [place] Indication: Hypertensive urgency, tingling BP: 136 / 75 HR: Rhythm: Sinus Technical Quality: Good MEASUREMENTS (Male / Female) Normal Values 2D ECHO LV Diastolic Diameter PLAX 4.1 cm 4.2 - 5.9 / 3.9 - 5.3 cm LV Systolic Diameter PLAX 2.4 cm LV Chamber Size 4.1 cm IVS Diastolic Thickness 1.5 cm 0.6 - 1.0 / 0.6 - 0.9 cm IVS Systolic Thickness 2.0 cm LVPW Diastolic Thickness 1.2 cm 0.6 - 1.0 / 0.6 - 0.9 cm LVPW Systolic Thickness 1.6 cm RV Chamber Size 2.1 cm LVOT Diameter 1.9 cm LV Ejection Fraction 2D Teich 72.9 % LV Ejection Fraction MOD 2C 79.0 % LV Ejection Fraction 2C AL 82.8 % LA Diameter 3.9 cm LA Width 3.4 cm LA Height 5.3 cm RA Width 2.0 cm RA Height 5.4 cm Aorta at Sinotubular Diameter 2.3 cm M-MODE LV Diastolic Diameter MM 4.8 cm 4.2 - 5.9 / 3.9 - 5.3 cm LV Systolic Diameter MM 2.9 cm LV Ejection Fraction MM Teich 70.4 % IVS Diastolic Thickness MM 1.7 cm 0.6 - 1.0 / 0.6 - 0.9 cm IVS Systolic Thickness MM 1.8 cm LVPW Diastolic Thickness MM 1.1 cm 0.6 - 1.0 / 0.6 - 0.9 cm LVPW Systolic Thickness MM 1.7 cm RV Diastolic Diameter MM 0.8 cm Aortic Annulus Diameter 2.8 cm LA Ao Ratio MM 1.7 MV E Point Septal Separation 0.3 cm DOPPLER AV Peak Velocity 128.0 cm/s LVOT Peak Velocity 121.0 cm/s AV Area Cont Eq vti 2.6 cm squared AV Area Cont Eq pk 2.8 cm squared MV Area PHT 3.0 cm squared Mitral E to A Ratio 0.8 MV E' Velocity 40.0 cm/s Mitral E to MV E' Ratio 12.9 Mitral E to LV E' Lateral Ratio 10.8 Mitral E to LV E' Septal Ratio 16.0 TR Peak Velocity 208.3 cm/s TR Peak Gradient 17.4 mmHg TV Peak E Velocity 51.0 cm/s Right Atrial Pressure 3.0 mmHg Pulmonary Artery Systolic Pressu 20.4 mmHg RV Acceleration Time 0.1 s RV Ejection Time 0.3 s RV AcT/ET 0.4 FINDINGS Left Ventricle Normal left ventricular size. LV systolic function is normal with EF of 55-60%. No regional wall motion abnormalities. Grade 1 diastolic dysfunction Right Ventricle The right ventricle is normal in size and function. Right Atrium The right atrium is normal in size. Left Atrium The left atrium is normal in size. Mitral Valve Structurally normal mitral valve without significant stenosis or prolapse. There is mild mitral regurgitation. Aortic Valve Structurally normal aortic valve without significant sclerosis or stenosis. There is trace aortic regurgitation. Tricuspid Valve Structurally normal tricuspid valve without significant stenosis . Trace tricuspid regurgitation. Insufficient TR jet to calculate RVSP Pulmonic Valve Structurally normal pulmonic valve without significant stenosis. There is no pulmonic regurgitation. Pericardium Normal pericardium without effusion. Aorta Normal ascending aorta dimension. CONCLUSIONS LV systolic function is normal with EF of 55-60%. Grade 1 diastolic dysfunction Trace aortic regurgitation Trace tricuspid regurgitation No comparison studies are available Patric Kirkland MD (Electronically Signed) Final Date: 27 February 2021 18:30 S
--- NOTE | 2021-02-27 18:34 | USR_ITS ---
Arterial ultrasound of the extracerebral carotid and vertebral arteries Clinical indication: Tingling; Additional info: Hypertensive urgency, tingling Technique: Real-time ultrasound with perry scale, duplex Doppler, and color flow imaging was performed to evaluate the extracerebral carotid and vertebral arteries. No prior vascular imaging studies are available for correlation at the time of dictation. Findings: Mild plaque formation and intimal thickening is identified in the visualized carotid arteries. There is normal antegrade flow within the vertebral arteries bilaterally. The peak systolic velocity measurements within the right and left internal carotid arteries are 87 and 98 cm per second respectively. The right systolic velocity ratio is 1.49, while the left systolic velocity ratio is 1.53. These values are well within normal limits. When correlating with NASCET index criteria, no hemodynamically significant ICA stenosis is present. US/CV carotid duplex BI* [id number] Impression: Unremarkable arterial ultrasound of the extracerebral carotid vertebral arteries. Radiation Dose CTDIVOL = (mGy): DLP = (mGy-cm)
[2021-02-27 20:29] LABS: Glucose Point of Care 166 mg/dL (70-110)
[2021-02-27] MEDS: insulin glargine 100 units/1 mL 50 UNIT SUBCUT (20:57)
--- NOTE | 2021-02-27 23:21 | CTR_ITS ---
PROCEDURE INFORMATION: Exam: CT Abdomen And Pelvis Without Contrast Exam date and time: 02/27/2021 11:21 PM Age: 60 years old Clinical indication: Abdominal pain; Generalized; Prior surgery; Surgery date: 6+ months; Surgery type: Colon, gb, appy; Patient HX: C/O abd pain and constipation; Additional info: Pain in abdomen TECHNIQUE: Imaging protocol: Computed tomography of the abdomen and pelvis without contrast. Radiation optimization: All CT scans at this facility use at least one of these dose optimization techniques: automated exposure control; mA and/or kV adjustment per patient size (includes targeted exams where dose is matched to clinical indication); or iterative reconstruction. COMPARISON: [place] [id number] 02/06/2017 9:01 AM RADIATION DOSE METRICS: Total DLP (mGy-cm): 1769.05 FINDINGS: Limitations: The absence of intravenous contrast lessens the sensitivity of this study for solid organ abnormalities. Lungs: There is some dependent atelectasis at the lung bases. There is a small calcified granuloma in the lingula. Liver: There is no focal abnormality within the liver. Gallbladder and bile ducts: There has been a cholecystectomy. Pancreas: The pancreas is normal. Spleen: The spleen is normal. Adrenal glands: There is a 3 cm benign adenoma left adrenal gland which measures less than 10 Hounsfield units on this noncontrast exam not significantly changed from 02/06/2017. Kidneys and ureters: The kidneys are normal. There is no evidence of hydronephrosis. There is no evidence of renal or ureteral calcifications. Stomach and bowel: There is no evidence of colitis/diverticulitis. Appendix: Not identified Intraperitoneal space: There is no evidence of free intraperitoneal fluid. Vasculature: Unremarkable. No abdominal aortic aneurysm. Lymph nodes: Unremarkable. No enlarged lymph nodes. Urinary bladder: Unremarkable as visualized. Reproductive: Unremarkable as visualized. Bones/joints: Unremarkable. No acute fracture. Soft tissues: Unremarkable. CT/CT abdomen pelvis wo con [id number] IMPRESSION: No acute finding Radiation Dose CTDIVOL = (mGy): DLP = 1769.05 (mGy-cm)
--- NOTE | 2021-02-27 23:26 | PC.NURSE ---
Around 2314: Patient c/o abdominal pain. Notified Dr. Floyd, hospitalist. Orders received, see orders.
[2021-02-28] VITALS (7 sets, daily range): BP systolic 152–168; BP diastolic 71–90; PULSE 51–74; RESP 15–18; TEMP 36.4; O2SAT 94–98
[2021-02-28] MEDS: dilTIAZem 30 mg Tablet PO ×2 (03:12→08:40)
[2021-02-28] MEDS: cloNIDine 0.1 mg Tablet 0.3 MG PO ×2 (03:13→13:19)
[2021-02-28 05:52] LABS: Basophils # 0.1 10^3/uL (0.0-0.1); Basophils % 0.8 %; Eosinophils # 0.4 10^3/uL (0.0-0.8); Eosinophils % 5.3 %; Hemoglobin 13.2 g/dL (11.5-15.3); Lymphocytes # 2.3 10^3/uL (0.8-4.8); Lymphocytes % 30.5 %; Mean Corpuscular HGB Conc 32.2 g/dL (30.0-36.0); Mean Corpuscular Hemoglobin 29.6 pg (28.0-34.0); Mean Corpuscular Volume 91.9 fl (81-99); Mean Platelet Volume 12.1 fL (7.4-10.4); Monocytes # 0.8 10^3/uL (0.2-0.9); Monocytes % 10.3 %; Nucleated Red Blood Cells % 0 %; Platelet Count 231 10^3/cmm (130-400); Red Blood Count 4.46 10^6/uL (4.1-5.3); Red Cell Distribution Width 13.2 % (12.1-15.1); White Blood Count 7.4 10^3/uL (4.0-10.0)
[2021-02-28 06:18] LABS: Anion Gap 17.3 (5-19); Blood Urea Nitrogen 16 mg/dL (8-23); Calcium 8.2 mg/dL (8.5-10.5); Carbon Dioxide 23 mmol/L (22-29); Chloride 102 mmol/L (98-107); Creatinine Clr Calc Pharmacy 96.5281; Glomerular Filtration Rate 85.1 mL/min (90-130); Glucose 156 mg/dL (65-115); Magnesium 1.8 mg/dL (1.7-2.3); Osmolality Calculated 290 mOsm/kg (285-295); Phosphorus 3.1 mg/dL (2.5-4.5); Potassium 4.3 mmol/L (3.5-5.1); Sodium 138 mmol/L (136-145)
[2021-02-28 06:41] LABS: Glucose Point of Care 185 mg/dL (70-110)
--- NOTE | 2021-02-28 08:19 | PC.NURSE ---
Around 0400: Patient states she has not had bowel movement in several days. Notified Dr. Acuña. Orders received, see MAY.
[2021-02-28] MEDS: lactulose oral liq 20 gm/30 mL UDC PO (08:40)
[2021-02-28] MEDS: insulin lispro 100 unit/1 mL SUBCUT ×2 (08:41→13:18)
[2021-02-28] MEDS: pantoprazole DR 40 mg Tablet PO (08:41)
--- NOTE | 2021-02-28 10:02 | USR_ITS ---
PROCEDURE INFORMATION: Exam: US Duplex Right Upper Extremity Veins, Limited Exam date and time: 02/28/2021 10:02 AM Age: 60 years old Clinical indication: Swelling (edema) of limb; Upper extremity, right; Additional info: Rgiht arm swelling TECHNIQUE: Imaging protocol: Real-time Duplex ultrasound of the Right Upper Extremity with 2-D perry scale, color Doppler flow and spectral waveform analysis with image documentation. Limited exam focused on the right upper extremity veins. COMPARISON: CT abdomen pelvis wo con [id number] 02/27/2021 11:47 PM FINDINGS: Right deep veins: Unremarkable. Axillary and brachial veins are patent throughout without thrombus. Normal Doppler waveforms. Normal compressibility and/or augmentation response. Visualized internal jugular and subclavian veins are patent. Right superficial veins: There is superficial thrombophlebitis of the basilic vein in the distal arm/antecubital region. The cephalic vein is patent. Soft tissues: Unremarkable. US/[place] [id number] IMPRESSION: 1. No evidence of deep vein thrombosis. 2. Superficial thrombophlebitis of the basilic vein Radiation Dose CTDIVOL = (mGy): DLP = (mGy-cm)
--- NOTE | 2021-02-28 12:24 | P.DS_ITS ---
Discharge Providers Date of Admission: 02/27/21 07:00 Date of Discharge: February 28, 2021 Attending Provider at Admission: Justin Osuna MD Attending Provider at Discharge: Justin Osuna MD Primary Care Provider: Ben Hernández MD Diagnoses at Discharge Discharge Diagnosis (1) Hypertensive urgency: Status: Acute Reason for Visit Reason for Visit: HTN:H/A,NUMBNESS,TINGLING IN FINGERS Hospital Course Hospital Course This is a 60-year female with a past medical history of hypertension, insulin- dependent type 2 days mellitus, who presents to [facility] due to weakness, headache, generalized malaise, tingling throughout her body Patient was admitted to [facility] for hypertensive urgency, CT of the head no acute stroke, carotid artery ultrasound was within normal limits, cardiac echo was within normal, EKG no acute ST-T wave changes, no significant troponin elevation. Managing patient's blood pressure was quite difficult, as patient was resistant to take many blood pressure medications, had multiple nonspecific allergies to blood pressure medications. Nonetheless she was managed with her home clonidine 0.3 mg every 8 hours, chlorthalidone 25 mg daily, with the addition of diltiazem 60 mg daily 12 hours. I chose Cardizem 60 mg every 12 hours, not a typical agent for blood pressure control, but patient was fairly resistant to trying other letter blood pressure medications due to adverse side effects. Patient's blood pressure improved with above agents, discharged with above agents with close follow-up with primary care provider for blood pressure check. Patient was advised she would have chest pain, palpita tions, shortness of breath, or strokelike symptoms call 911 or go to the emergency room. In terms of her type 2 diabetes mellitus, hemoglobin A1c was 8.9, advised to discuss with primary care provider about GLP-1 analogs In terms of her paresthesias, given her hypertensive urgency possible TIA-like symptoms, CT of the head no acute stroke, carotid artery ultrasound was within normal limits, no focal neurologic deficits. Nonetheless I discharged her on aspirin 81 mg daily with 40 mg daily Patient was also found to have superficial thrombophlebitis of the basilic vein near the IV insertion site, with warmth, erythema, swelling and tenderness near the right arm fold. Patient was advised to continue warm compress, keep elevated, doxycycline for antibiotic coverage. Physical Exam Const: COMMON NORMALS: no acute distress and patient oriented x3 Resp: COMMON NORMALS: normal respiratory effort, No retractions, No use of accessory muscles and clear to auscultation bilaterally AUSCULTATION: clear to auscultation bilaterally Cardio: COMMON NORMALS: regular rate, regular rhythm, S1 normal heart sound present and S2 normal heart sound present RATE: regular rate RHYTHM: regular rhythm HEART SOUNDS: S1 normal heart sound present and S2 normal heart sound present GI: COMMON NORMALS: Normal to inspection, nondistended, normoactive bowel sounds present, Soft to palpation and non-tender PALPATION: Yes Soft to palpation Extremity: COMMON NORMALS: no pedal edema Neuro: COMMON NORMALS: patient oriented x3 Psych: COMMON NORMALS: mental status grossly normal Discharge Data Data Completed and Pending: Completed Studies During Hospitalization Category Date Time Status CT abdomen pelvis wo con [id number] Rout ine Cat Scan 02/27/21 23:[address] head wo con* [id number] Urgent Cat Scan 02/26/21 11:44 Completed XR chest 1V ridge ble [id number] Urgent Exams 02/26/21 15:46 Completed CV carotid duplex BI* [id number] Routine Ultrasound 02/27/21 18:34 [place] [id number] Stat Ultrasound 02/28/21 10:02 Completed CV. echo complete * [id number] Routine Ultrasound 02/27/21 18:34 Completed Pending at discharge Category Date Time Status Basic Metabolic P mejia AM LABS Lab 03/01/21 04:00 Ordered Basic Metabolic P mejia AM LABS Lab 03/02/21 04:00 Ordered Complete Blood Co unt w/Auto AM LABS Lab 03/01/21 04:00 Ordered Complete Blood Co unt w/Auto AM LABS Lab 03/02/21 04:00 Ordered Magnesium AM LABS Lab 03/01/21 04:00 Ordered Magnesium AM LABS Lab 03/02/21 04:00 Ordered Phosphorus AM LAB S Lab 03/01/21 04:00 Ordered Phosphorus AM LAB S Lab 03/02/21 04:00 Ordered Labs from last 24 hours 02/28/21 02/28/21 02/28/21 06:30 05:26 05:26 WBC RBC Hgb Hct MCV MCH MCHC RDW Plt Count MPV Neut % (Auto) Lymph % (Auto) [place] % (Auto) Eos % (Auto) Baso % (Auto) Neut # (Auto) Lymph # (Auto) [place] # (Auto) Eos # (Auto) Baso # (Auto) Nucleated RBC % (a uto) Nucleated RBCs # Sodium Cancelled 138 Potassium Cancelled 4.3 Chloride Cancelled 102 Carbon Dioxide Cancelled 23 Anion Gap Cancelled 17.3 BUN Cancelled 16 Creatinine Cancelled 0.7 GFR Calculation Cancelled 85.1 L Glucose Cancelled 156 H POC Glucose 185 H Calculated Osmolal ity Cancelled 290 Calcium Cancelled 8.2 L Phosphorus 3.1 Magnesium 1.8 02/28/21 02/27/21 02/27/21 05:26 19:50 16:28 WBC 7.4 RBC 4.46 Hgb 13.2 Hct 41.0 MCV 91.9 MCH 29.6 MCHC 32.2 RDW 13.2 Plt Count 231 MPV 12.1 H Neut % (Auto) 53.0 Lymph % (Auto) 30.5 [place] % (Auto) 10.3 Eos % (Auto) 5.3 Baso % (Auto) 0.8 Neut # (Auto) 3.90 Lymph # (Auto) 2.3 [place] # (Auto) 0.8 Eos # (Auto) 0.4 Baso # (Auto) 0.1 Nucleated RBC % (a uto) 0 Nucleated RBCs # 0.0 Sodium Potassium Chloride Carbon Dioxide Anion Gap BUN Creatinine GFR Calculation Glucose POC Glucose 166 H 227 H Calculated Osmolal ity Calcium Phosphorus Magnesium 02/27/21 02/27/21 16:14 13:39 WBC RBC Hgb Hct MCV MCH MCHC RDW Plt Count MPV Neut % (Auto) Lymph % (Auto) [place] % (Auto) Eos % (Auto) Baso % (Auto) Neut # (Auto) Lymph # (Auto) [place] # (Auto) Eos # (Auto) Baso # (Auto) Nucleated RBC % (a uto) Nucleated RBCs # Sodium 135 L Potassium 4.2 Chloride 99 Carbon Dioxide 27 Anion Gap 13.2 BUN 13 Creatinine 0.8 GFR Calculation 72.9 L Glucose 225 H POC Glucose 228 H Calculated Osmolal ity 287 Calcium 8.5 Phosphorus 3.7 Magnesium 2.0 Vitals: Last Vital Signs Temp 98.3 F 02/26/21 11:21 Pulse 55 L 02/28/21 06:00 Resp 18 02/28/21 03:46 BP 157/77 02/28/21 03:46 Pulse Ox 96 02/28/21 03:46 Discharge Plan Discharge Patient Disposition: Home Condition: Stable Prescriptions: New cyclobenzaprine 10 mg Tablet 5 mg PO TID PRN (Reason: Muscle Spasms) 7 Days Qty: 21 RF: 0 diltiazem HCl 60 mg capsule,extended release 12 hr 60 mg PO Q12H 30 Days Qty: 60 RF: 0 doxycycline hyclate 100 mg capsule 100 mg PO BID 5 Days Qty: 10 RF: 0 aspirin 81 mg capsule 81 mg PO DAILY 30 Days Qty: 30 RF: 0 chlorthalidone 25 mg Tablet 25 mg PO Q24H 30 Days Qty: 30 RF: 0 clonidine HCl 0.1 mg Tablet 0.3 mg PO Q8H 30 Days Qty: 270 RF: 0 atorvastatin 40 mg tablet 40 mg PO DAILY 30 Days Qty: 30 RF: 0 Continued Lantus U-100 Insulin 100 unit/mL solution 50 unit SUBCUT BEDTIME RF: 0 Novolin R Regular U-100 Insuln 100 unit/mL solution 10 unit SUBCUT DIRECTED RF: 0 Discontinued clonidine HCl 0.3 mg tablet 0.3 mg PO TID RF: 0 Discharge Orders: Discharge Order (Routine); Ordered 02/28/21 Ordered By: Justin Osuna Referrals: Ben Hernández MD [Primary Care Provider] - Discharge Diet: Cardiac Discharge Activity: Resume usual activity Patient Instructions: Diltiazem (By mouth), Clonidine (By mouth), Doxycycline (By mouth), Cyclobenzaprine (By mouth), Chlorthalidone (By mouth) ([place]), Opioid Safety Activity Restrictions/Additional Instructions: -For superficial thrombophlebitis, continue warm compress, take antibiotics as prescribed, keep elevated -For blood pressure take chlorthalidone, clonidine, Cardizem as prescribed -Follow-up with primary care provider for blood pressure check -If you have any chest pain, palpitations or strokelike symptoms please call 911 -Keep in touch with Julissa Discharge Attestations Time Spent in Discharge Care*: less than 30 min Quality Metrics Clinical Quality Measures During this hospital stay, did patient experience: None Coding Level of Care Code Acute Chg FW DC note Exam Detailed Diagnoses Hypertensive urgency I16.0
[2021-02-28 12:30] LABS: Glucose Point of Care 276 mg/dL (70-110)
[2021-02-28] MEDS: acetaminophen 325 mg Tablet 650 MG PO (13:18)
== END 2021-02-28 14:40 | disposition home or self-care (01) | DRG 305 ==
LOC: ER 02-27 05:38 → CSU 02-27 12:29
PROVIDERS: Emergency Medicine; Student in an Organized Health Care Education/Training Program; Admitting Provider Family Medicine; Emergency Provider Emergency Medicine; PCP Family Medicine; Visit Provider Family Medicine
DX: I16.0 Hypertensive urgency (principal); I80.8 Phlebitis and thrombophlebitis of other sites; E11.9 Type 2 diabetes mellitus without complications; R20.2 Paresthesia of skin; R51.9 Headache, unspecified; Z79.4 Long term (current) use of insulin
CPT/HCPCS: 36415; 36416; 36600; 70450; 71045; 74176; 80048; 80051; 80053; 80061; 81001; 82330; 82805; 82962; 83036; 83735; 84100; 84443; 84484; 85025; 87426; 87804; 93005; 93306; 93880; 93971; 96365; 96366; 96367; 96372; 96375; 99291; J1815 ×2; J1885; J2270; J2405; J3010; J3475; J3490; J7030

== ENCOUNTER 2021-09-17 09:22 | Outpatient (CLI) | payer OTHER, SELFPAY ==
--- NOTE | 2021-09-17 09:31 | MM_ITS ---
WS: [id number] Exam: [place] [id number] Date/Time of Exam: 09/17/2021 10:23 AM Reason For Exam: SCREENING Compared to previous study 12/17/2018. MLO and CC views both breasts are obtained. No sign of suspicious mass, tumor calcification or architectural distortion. No change. The breasts a re fatty. Recommendations: Continue yearly screening mammography. MM/[place] [id number] IMPRESSION: 1. No mammographic findings suspicious for malignancy.
== END 2021-09-17 09:23 | disposition home or self-care (01) ==
LOC: RAD 09:23
PROVIDERS: PCP Family Medicine; Visit Provider Family Medicine
DX: Z12.13 Encounter for screening for malignant neoplasm of small intestine (principal)
CPT/HCPCS: 77067

== ENCOUNTER 2021-10-14 10:36 | Outpatient (CLI) | payer OTHER, SELFPAY ==
--- NOTE | 2021-10-14 10:42 | CT_ITS ---
WS: [id number] LDCT LUNG CANCER SCREENING TECHNIQUE: Noncontrast CT of the chest with coronal and sagittal reformatted images. CLINICAL INFORMATION: HX OF TOBACCO USE COMPARISON: CTA DLP: 72.01 mGy.cm DIvol: Mean CTDIvol: 1.60 (mGy) All CT scans at [facility] use at least one of these dose optimization techniques: automat ed exposure control; mA and/or kV adjustment per patient size (includes targeted exams where dose is matched to clinical indication); or iterative reconstruction. FINDINGS: Both lungs are well aerated. No acute pulmonary infiltrates. No focal pneumonia or pleural fluid. Sta ble 3 mm nodule RIGHT upper lobe along the fissure unchanged since 2017. Additional adjacent 3 mm nod ule along the fissure appears new from 2017. Subpleural nodule RIGHT upper lobe measuring 4.2 mm. A few additional tiny noncalcified nodules in th e RIGHT upper lobe and RIGHT lower lobe. Normal caliber thoracic aorta. Aortic calcification. No mediastinal or hilar lymphadenopathy. Coronar y calcification. No axillary lymphadenopathy. Stable LEFT adrenal lesion measuring measuring 3.1 cm compatible with adenoma. Normal RIGHT adrenal g land. Splenic artery calcification. RIGHT adrenal gland is normal. CT/CT lung screening [id number] IMPRESSION: LUNG-RADS: 2-Benign Appearance or Behavior FOLLOW UP: 12 Month: Continue annual screening with LDCT
== END 2021-10-14 10:37 | disposition home or self-care (01) ==
PROVIDERS: PCP Family Medicine; Visit Provider Family Medicine
DX: Z12.2 Encounter for screening for malignant neoplasm of respiratory organs (principal); Z87.891 Personal history of nicotine dependence
CPT/HCPCS: 71271

== ENCOUNTER 2022-04-06 07:44 | Day surgery (SDC) | payer MEDICAID, SELFPAY ==
[2022-04-04 10:07] VITALS: BMI 27.9
[2022-04-06 08:03] LABS: Glucose Point of Care 97 mg/dL (70-110)
[2022-04-06 08:04] VITALS: BP 164/93; PULSE 69; RESP 18; TEMP 36.6; O2SAT 96
[2022-04-06] MEDS: sodium chloride 0.9% 1,000 ML 30 ML IV (08:10)
--- NOTE | 2022-04-06 08:37 | ANES.PREANE2 ---
Pre-Anesthetic Assessment Height/Weight: Height 1.73 m Weight 83.461 kg Temp Pulse Resp BP Pulse Ox O2 Del Method 97.8 F 69 18 164/93 96 04/06/22 08:04 04/06/22 08:04 04/06/22 08:04 04/06/22 08:04 04/06/22 08:04 04/06/22 08:04 Operation Date: 04/06/22 10:00 Proposed Procedures p 35027 egd, 55928 colon Z86.010,K59.00(Not Applicable) - DO vini Reyes Colonoscopy(Not Applicable) - Jeevan Patino DO Familial anesthetic complications: None Was Beta Josias taken within 24 hours: N/A Was Clonidine taken within 24 hours: N/A Last intake: Intake Last Liquid Date 04/05/22 Last Liquid Time 23:00 Last Solid Date 04/04/22 Last Solid Time 18:00 Social No alcohol and No tobacco Exam alert, oriented x 3, clear to auscultation bilaterally and regular rate & rhythm Airway Mallampati: Class II Dentition: full CV/HEM Hypertension and Myocardial Infarction Metabolic Diabetes Mellitus Anesthetic Plan ASA status: 3 Anesthesia: MAC Risk of > 500 ml blood loss (7ml/kg in children): No Medications/Allergies Home Medications Medication Instructions Recorded Confirmed Last Taken Type insulin glargine 100 unit/mL 35 unit SUBCUT BID 02/27/21 04/06/22 04/05/22 History subcutaneous solution (Lantus U-100 Insulin) insulin regular human 100 unit/mL 10 unit SUBCUT DIRECTED 02/27/21 04/06/22 04/04/22 History injection solution (Novolin R Regular U-100 Insulin) clonidine HCl 0.3 mg tablet 0.3 mg PO QID 02/25/22 04/06/22 04/06/22 05:00 History losartan 100 mg tablet 50 mg PO BID 02/25/22 04/06/22 04/05/22 History Allergies Allergy/AdvReac Type Severity Reaction Status Date / Time amlodipine Allergy ADR-Headach Verified 02/25/22 09:33 e hydralazine Allergy Unknown Verified 02/25/22 09:33 hydromorphone Allergy ADR-Vomitin Verified 02/25/22 09:33 g lisinopril Allergy ADR-Cough Verified 02/25/22 09:33 metoprolol Allergy ADV-Weaknes Verified 02/25/22 09:33 s Penicillins Allergy Unknown Verified 02/25/22 09:33 tramadol Allergy ADR-Headach Verified 02/25/22 09:33 e morphine AdvReac Intermediate ADR-Abdominal Verified 02/25/22 09:33 Pain TONY Inhibitors AdvReac Mild ADR-Cough Verified 02/25/22 09:33 Current Medications Generic Name Dose Route Start Last Admin Trade Name Freq PRN Reason Stop Dose Admin Sodium Chloride 1,000 mls @ 30 mls/hr 04/06/22 08:00 04/06/22 08:10 Sodium Chloride 0.9% IV 04/07/22 07:59 30 mls/hr .Q24H ROLDAN Administration PFSH Anesthesia Medical History Diabetes Hypertension Surgical History Hx of section Hx of cholecystectomy Hx of colectomy Data Anesthesia Cardiac Studies: Echocardiogram 02/27/21
[2022-04-06 09:39] LABS: Glucose Point of Care 113 mg/dL (70-110)
--- NOTE | 2022-04-06 10:19 | P.HP_ITS ---
Providers/Chief Complaint Primary Care Provider: Ben Hernández MD Chief Complaint: Z86.010, K59.00 History of Present Illness Wanda Balbuena is a 61 year old female who is here for EGD and colonoscopy Medications/Allergies Home Medications Medication Instructions Recorded Confirmed Last Taken Type insulin glargine 100 unit/mL 35 unit SUBCUT BID 02/27/21 04/06/22 04/05/22 History subcutaneous solution (Lantus U-100 Insulin) insulin regular human 100 unit/mL 10 unit SUBCUT DIRECTED 02/27/21 04/06/22 04/04/22 History injection solution (Novolin R Regular U-100 Insulin) clonidine HCl 0.3 mg tablet 0.3 mg PO QID 02/25/22 04/06/22 04/06/22 05:00 History losartan 100 mg tablet 50 mg PO BID 02/25/22 04/06/22 04/05/22 History Allergies Allergy/AdvReac Type Severity Reaction Status Date / Time amlodipine Allergy ADR-Headach Verified 02/25/22 09:33 e hydralazine Allergy Unknown Verified 02/25/22 09:33 hydromorphone Allergy ADR-Vomitin Verified 02/25/22 09:33 g lisinopril Allergy ADR-Cough Verified 02/25/22 09:33 metoprolol Allergy ADV-Weaknes Verified 02/25/22 09:33 s Penicillins Allergy Unknown Verified 02/25/22 09:33 tramadol Allergy ADR-Headach Verified 02/25/22 09:33 e morphine AdvReac Intermediate ADR-Abdominal Verified 02/25/22 09:33 Pain TONY Inhibitors AdvReac Mild ADR-Cough Verified 02/25/22 09:33 PFSH Acute PFSH: Medical History Diabetes Hypertension Surgical History Hx of section Hx of cholecystectomy Hx of colectomy Vitals/I&O/Wt Last Vital Signs Temp 97.8 F 04/06/22 08:04 Pulse 69 04/06/22 08:04 Resp 18 04/06/22 08:04 BP 164/93 04/06/22 08:04 Pulse Ox 96 04/06/22 08:04 O2 Del Method 04/06/22 08:04 A&P Assessment and plan (1) History of colon polyps: (2) GERD (gastroesophageal reflux disease): (3) Hematemesis: Plan EGD and colonoscopy Attestations Medical Necessity Statement*: Home Coding Level of Care Code 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
[2022-04-06 10:46] VITALS: BP 161/73; PULSE 58; RESP 20; TEMP 36.3; O2SAT 96
[2022-04-06 10:55] VITALS: BP 139/75; PULSE 57; RESP 16; O2SAT 97
--- NOTE | 2022-04-06 13:34 | ANE.PACU2 ---
Inpatient post-anesthesia follow up: Airway intact: Yes Vital signs: Temperature 97.3 F Pulse Rate 57 Respiratory Rate 16 Blood Pressure 139/75 Pulse Oximetry 97 Oxygen Delivery Me thod Room Air Oxygen Flow Rate Fraction of Inspir ed Oxygen Hydration adequate: Yes Nausea and vomiting: No Pain level: 1 Mental status: Baseline
== END 2022-04-06 11:20 | disposition home or self-care (01) ==
PROVIDERS: PCP Family Medicine; Visit Provider Surgery
PROC: 0DJ08ZZ Inspection of Upper Intestinal Tract, Via Natural or Artificial Opening Endoscopic (ICD-10-PCS; CPT 43235; principal; 2022-04-06 10:00)
PROC: 0DJD8ZZ Inspection of Lower Intestinal Tract, Via Natural or Artificial Opening Endoscopic (ICD-10-PCS; CPT 45378; 2022-04-06 10:00)
DX: Z86.010 Personal history of colon polyps (principal); K21.9 Gastro-esophageal reflux disease without esophagitis; K92.0 Hematemesis; K57.30 Diverticulosis of large intestine without perforation or abscess without bleeding; K44.9 Diaphragmatic hernia without obstruction or gangrene; K29.50 Unspecified chronic gastritis without bleeding; B96.81 Helicobacter pylori [H. pylori] as the cause of diseases classified elsewhere; I10 Essential (primary) hypertension; I25.2 Old myocardial infarction; E11.9 Type 2 diabetes mellitus without complications; Z79.4 Long term (current) use of insulin
CPT/HCPCS: 36416; 43239; 45378; 82962; 88305; J2704; J7030

== ENCOUNTER 2022-10-27 11:00 | Outpatient (CLI) | payer MEDICAID, SELFPAY | END 2022-10-27 11:01 | disposition home or self-care (01) | LOC: SLEEP 10-28 10:13 | PROVIDERS: PCP Family Medicine; Visit Provider Family Medicine | DX: G47.33 Obstructive sleep apnea (adult) (pediatric) (principal) | CPT/HCPCS: G0399 ==

== ENCOUNTER 2022-12-16 14:44 | Outpatient (CLI) | payer MEDICAID, SELFPAY ==
--- NOTE | 2022-12-16 14:51 | CT_ITS ---
WS: [id number] LDCT LUNG CANCER SCREENING TECHNIQUE: Noncontrast CT of the chest with coronal and sagittal reformatted images. CLINICAL INFORMATION: HX OF TOBACCO USE COMPARISON: CT 10/14/2021 DLP: 83.92 mGy.cm DIvol: Mean CTDIvol: 1.90 (mGy) All CT scans at [facility] use at least one of these dose optimization techniques: automat ed exposure control; mA and/or kV adjustment per patient size (includes targeted exams where dose is matched to clinical indication); or iterative reconstruction. FINDINGS: Lungs are well aerated. No acute pulmonary infiltrates. No focal pneumonia or pleural fluid. RIGHT upper lobe nodules along the fissure measuring 3 mm are stable since 2017. Subpleural nodule RI GHT upper lobe measuring 4.2 mm unchanged. A few additional tiny subcentimeter noncalcified nodules i n the RIGHT upper lobe and RIGHT lower lobe. Normal caliber thoracic aorta. Aortic calcification. No mediastinal or hilar lymphadenopathy. Coronar y calcification. No axillary lymphadenopathy. LEFT adrenal adenoma measuring 3.4 cm measures slightly larger today. Normal RIGHT adrenal gland. Splenic artery calcification. IMPRESSION: CT/CT lung screening [id number] LUNG-RADS: 2-Benign Appearance or Behavior FOLLOW UP: 12 Month: Continue annual screening with LDCT
== END 2022-12-16 14:45 | disposition home or self-care (01) ==
PROVIDERS: PCP Family Medicine; Visit Provider Family Medicine
DX: Z12.2 Encounter for screening for malignant neoplasm of respiratory organs (principal); Z87.891 Personal history of nicotine dependence
CPT/HCPCS: 71271

== ENCOUNTER 2022-12-27 20:00 | Outpatient (CLI) | payer MEDICAID, SELFPAY | END 2022-12-27 20:01 | disposition home or self-care (01) | LOC: SLEEP 12-28 04:34 | PROVIDERS: PCP Family Medicine; Visit Provider Family Medicine | DX: G47.33 Obstructive sleep apnea (adult) (pediatric) (principal) | CPT/HCPCS: 95811 ==

== ENCOUNTER → 2023-03-08 11:25 | Outpatient (BNVA) | payer MEDICAID, SELFPAY | PROVIDERS: PCP Family Medicine; Visit Provider Internal Medicine | DX: D35.00 Benign neoplasm of unspecified adrenal gland (principal); E87.6 Hypokalemia; I16.0 Hypertensive urgency | CPT/HCPCS: 36415; 80053; 82088; 84244 ==

== ENCOUNTER 2023-04-19 10:01 | Outpatient (CLI) | payer MEDICAID, SELFPAY ==
[2023-04-19 11:17] LABS: Total Volume Urine 3150 ml
[2023-04-19 11:35] LABS: Creatinine 24 Hour Urine 976.5 mg/dL (601-1689); Urine Creatinine 31 mg/dL (28-217)
[2023-04-28 17:50] LABS: Free Cortisol Urine 57.6 mcg/24 h (4.0-50.0); Total Urine 3150 mL; Urine Creatinine 0.96 g/24 h (0.50-2.15)
[2023-04-29 23:20] LABS: Metanephrines Total Urine 3150 mL; Urine Metanephrines Total 195 mcg/24 h (224-832)
== END 2023-04-19 10:02 | disposition home or self-care (01) ==
LOC: LAB 10:01
PROVIDERS: PCP Family Medicine; Visit Provider Internal Medicine
DX: D35.00 Benign neoplasm of unspecified adrenal gland (principal)
CPT/HCPCS: 82384; 82530; 82570; 83835

== ENCOUNTER 2023-05-01 11:21 | Outpatient (CLI) | payer MEDICAID, SELFPAY ==
[2023-05-01 12:30] LABS: Blood Urea Nitrogen 18 mg/dL (8-23); Calcium 9.2 mg/dL (8.5-10.5); Carbon Dioxide 25 mmol/L (22-29); Chloride 95 mmol/L (98-107); Glucose 290 mg/dL (65-115); Osmolality Calculated 285 mOsm/kg (285-295); Sodium 131 mmol/L (136-145)
== END 2023-05-01 11:22 | disposition home or self-care (01) ==
LOC: LAB 11:22
PROVIDERS: PCP Family Medicine; Visit Provider Internal Medicine
DX: D35.00 Benign neoplasm of unspecified adrenal gland (principal)
CPT/HCPCS: 36415; 80048

== ENCOUNTER 2023-05-03 15:08 | Outpatient (CLI) | payer MEDICAID, SELFPAY ==
[2023-05-03 16:57] LABS: Anion Gap 17.8 (5-19); Blood Urea Nitrogen 17 mg/dL (8-23); Calcium 9.3 mg/dL (8.5-10.5); Carbon Dioxide 25 mmol/L (22-29); Chloride 91 mmol/L (98-107); Glomerular Filtration Rate 63.2 mL/min (90-130); Glucose 330 mg/dL (65-115); Osmolality Calculated 282 mOsm/kg (285-295); Potassium 4.8 mmol/L (3.5-5.1); Sodium 129 mmol/L (136-145)
== END 2023-05-03 15:09 | disposition home or self-care (01) ==
LOC: LAB 15:12
PROVIDERS: PCP Family Medicine; Visit Provider Internal Medicine
DX: E87.6 Hypokalemia (principal)
CPT/HCPCS: 80048

== ENCOUNTER 2023-05-08 07:58 | Outpatient (CLI) | payer MEDICAID, SELFPAY ==
[2023-05-08 09:04] LABS: Blood Urea Nitrogen 11 mg/dL (8-23); Calcium 8.6 mg/dL (8.5-10.5); Carbon Dioxide 25 mmol/L (22-29); Chloride 94 mmol/L (98-107); Glomerular Filtration Rate 63.2 mL/min (90-130); Glucose 265 mg/dL (65-115); Magnesium 1.7 mg/dL (1.7-2.3); Osmolality Calculated 277 mOsm/kg (285-295); Sodium 129 mmol/L (136-145)
== END 2023-05-08 07:59 | disposition home or self-care (01) ==
LOC: LAB 08:00
PROVIDERS: PCP Family Medicine; Visit Provider Internal Medicine
DX: E87.6 Hypokalemia (principal)
CPT/HCPCS: 36415; 80048; 83735

== ENCOUNTER 2023-05-15 11:50 | Outpatient (CLI) | payer MEDICAID, SELFPAY ==
[2023-05-15 12:37] LABS: Anion Gap 15.1 (5-19); Blood Urea Nitrogen 17 mg/dL (8-23); Calcium 9.3 mg/dL (8.5-10.5); Carbon Dioxide 28 mmol/L (22-29); Chloride 98 mmol/L (98-107); Glomerular Filtration Rate 50.2 mL/min (90-130); Glucose 356 mg/dL (65-115); Osmolality Calculated 296 mOsm/kg (285-295); Potassium 6.1 mmol/L (3.5-5.1); Sodium 135 mmol/L (136-145)
== END 2023-05-15 11:51 | disposition home or self-care (01) ==
LOC: LAB 11:51
PROVIDERS: PCP Family Medicine; Visit Provider Internal Medicine
DX: E87.6 Hypokalemia (principal)
CPT/HCPCS: 36415; 80048

== ENCOUNTER 2023-05-15 15:07 | Emergency (ER) | payer MEDICAID, SELFPAY ==
[2023-05-15 16:02] VITALS: BP 177/91; PULSE 89; RESP 16; TEMP 36.7; O2SAT 98; BMI 27.9
[2023-05-15 16:28] LABS: Basophils # 0.1 10^3/uL (0.0-0.1); Basophils % 0.8 %; Eosinophils # 0.4 10^3/uL (0.0-0.8); Eosinophils % 4.7 %; Hematocrit 42.5 % (36-47); Lymphocytes % 34.1 %; Mean Corpuscular HGB Conc 33.4 g/dL (30-55); Mean Corpuscular Hemoglobin 29.5 pg (27-33); Mean Corpuscular Volume 88.4 fl (85-98); Mean Platelet Volume 11.8 fL (7.4-10.4); Monocytes # 0.6 10^3/uL (0.2-0.9); Monocytes % 6.7 %; Neutrophils # 4.67 10^3/uL (1.8-7.7); Neutrophils % 53.5 %; Nucleated Red Blood Cells % 0 %; Platelet Count 233 10^3/cmm (157-399); Red Blood Count 4.81 10^6/uL (3.85-5.65); Red Cell Distribution Width 12.9 % (12.1-15.1); White Blood Count 8.72 10^3/uL (3.29-11.43)
[2023-05-15 16:51] LABS: Alanine Aminotransferase 16 U/L (0-33); Albumin Level 4.2 g/dL (3.5-5.2); Alkaline Phosphatase 93 U/L (35-105); Anion Gap 17.1 (5-19); Aspartate Amino Transferase 15 U/L (0-32); Blood Urea Nitrogen 19 mg/dL (8-23); Carbon Dioxide 27 mmol/L (22-29); Chloride 95 mmol/L (98-107); Globulin 3.1 g/dL (1.3-4.6); Glomerular Filtration Rate 63.2 mL/min (90-130); Glucose 186 mg/dL (65-115); Osmolality Calculated 287 mOsm/kg (285-295); Potassium 4.1 mmol/L (3.5-5.1); Sodium 135 mmol/L (136-145); Total Bilirubin 0.3 mg/dL (0.15-1.2); Total Protein 7.3 g/dL (6.6-8.7)
--- NOTE | 2023-05-15 17:53 | ED_ITS ---
HPI - Recheck/Abnormal Lab/Rx 2 General: Chief Complaint: Recheck/Abnormal Lab/Rx Stated Complaint: sent from dr high howe Time Seen by Provider: 05/15/23 17:44 Source: patient Mode of arrival: ambulatory Limitations: no limitations History of Present Illness: 62-year-old female who has a history of adrenal adenoma she has been having periods of some hypertension along with hypo and hyperkalemia she had her labs drawn by her earring maker was told to come here because her potassium was 6.1 at noon. Potassium here is now normal states she is having some palpitations earlier today but she states she feels completely normal and has no medical complaints at this time Review of Systems 2 Const: Denies: fever(s) or chills ENMT: Denies: throat pain or dental pain Card: Reports: palpitations; Denies: chest pain Resp: Denies: dyspnea GI: Denies: abdominal pain, nausea, vomiting or diarrhea Musc: Denies: neck pain or back pain Skin/Breast: Denies: rash Neuro: Denies: headache(s) PFSH ED 2 PFSH: Medical History History of colon polyps Diabetes Hypertension Surgical History Hx of section Hx of cholecystectomy Hx of colectomy Physical Exam 2 Const: COMMON NORMALS: no acute distress, patient oriented x3 and healthy appearing HENMT: COMMON NORMALS: normocephalic and atraumatic HEAD & SCALP: n ormocephalic and atraumatic Eye: COMMON NORMALS: conjunctivae normal CONJUNCTIVA: Yes conjunctivae normal Neck/C-Spine: COMMON NORMALS: full ROM and supple Chest: COMMONS NORMALS: normal inspection of the chest Resp: COMMON NORMALS: normal respiratory effort, No retractions, No use of accessory muscles and clear to auscultation bilaterally AUSCULTATION: clear to auscultation bilaterally Cardio: COMMON NORMALS: regular rate, regular rhythm and No murmurs present (Cardio) RATE: regular rate RHYTHM: regular rhythm Extremity: COMMON NORMALS: normal to inspection and full ROM Neuro: COMMON NORMALS: patient oriented x3, moves all extremities and no focal motor deficits Psych: COMMON NORMALS: mental status grossly normal, Normal thought process present and cooperative THOUGHT PROCESS: Normal thought process present Skin: COMMON NORMALS: no rashes or lesions noted and no wounds GENERAL SKIN EXAM: no rashes or lesions noted Course 2 Vital Signs: Vital signs: Vital Signs Temperature 98.1 F 05/15/23 16:02 Pulse Rate 89 05/15/23 16:02 Respiratory Rate 16 05/15/23 16:02 Blood Pressure 177/91 05/15/23 16:02 Pulse Oximetry 98 05/15/23 16:02 Oxygen Delivery Me thod Room Air 05/15/23 16:02 MDM - Recheck/Abnormal Lab/Rx Medical Decision Making Patient presents here with concerns of hyperkalemia her blood work here is all normal I spoke to her earring maker Dr. Bernabe who is comfortable patient being discharged patient has no complaints this time feels much improved stable for discharge she is to follow-up with Dr. Bernabe return if worsening she understands agrees to plan Medical Records I reviewed the patient's medical records. Lab Data I reviewed the patient's lab results. 05/15/23 16:18 05/15/23 16:18 Laboratory Results WBC 8.72 10^3/uL (3.29-11.43) 05/15/23 16:18 RBC 4.81 10^6/uL (3.85-5.65) 05/15/23 16:18 Hgb 14.20 g/dL (11.27-16.99) 05/15/23 16:18 Hct 42.5 % (36-47) 05/15/23 16:18 MCV 88.4 fl (85-98) 05/15/23 16:18 MCH 29.5 pg (27-33) 05/15/23 16:18 MCHC 33.4 g/dL (30-55) 05/15/23 16:18 RDW 12.9 % (12.1-15.1) 05/15/23 16:18 Plt Count 233 10^3/cmm (157-399) 05/15/23 16:18 MPV 11.8 fL (7.4-10.4) H 05/15/23 16:18 Neut % (Auto) 53.5 % 05/15/23 16:18 Lymph % (Auto) 34.1 % 05/15/23 16:18 [place] % (Auto) 6.7 % 05/15/23 16:18 Eos % (Auto) 4.7 % 05/15/23 16:18 Baso % (Auto) 0.8 % 05/15/23 16:18 Neut # (Auto) 4.67 10^3/uL (1.8-7.7) 05/15/23 16:18 Lymph # (Auto) 3.0 10^3/uL (0.8-4.8) 05/15/23 16:18 [place] # (Auto) 0.6 10^3/uL (0.2-0.9) 05/15/23 16:18 Eos # (Auto) 0.4 10^3/uL (0.0-0.8) 05/15/23 16:18 Baso # (Auto) 0.1 10^3/uL (0.0-0.1) 05/15/23 16:18 Nucleated RBC % (auto) 0 % 05/15/23 16:18 Nucleated RBCs # 0.0 /100WBC 05/15/23 16:18 Sodium 135 mmol/L (136-145) L 05/15/23 16:18 Potassium 4.1 mmol/L (3.5-5.1) 05/15/23 16:18 Chloride 95 mmol/L (98-107) L 05/15/23 16:18 Carbon Dioxide 27 mmol/L (22-29) 05/15/23 16:18 Anion Gap 17.1 (5-19) 05/15/23 16:18 BUN 19 mg/dL (8-23) 05/15/23 16:18 Creatinine 0.9 mg/dL (0.5-0.9) 05/15/23 16:18 GFR Calculation 63.2 mL/min (90-130) L 05/15/23 16:18 Glucose 186 mg/dL (65-115) H 05/15/23 16:18 Calculated Osmolality 287 mOsm/kg (285-295) 05/15/23 16:18 Calcium 9.0 mg/dL (8.5-10.5) 05/15/23 16:18 Total Bilirubin 0.3 mg/dL (0.15-1.2) 05/15/23 16:18 AST 15 U/L (0-32) 05/15/23 16:18 ALT 16 U/L (0-33) 05/15/23 16:18 Alkaline Phosphatase 93 U/L (35-105) 05/15/23 16:18 Total Protein 7.3 g/dL (6.6-8.7) 05/15/23 16:18 Albumin 4.2 g/dL (3.5-5.2) 05/15/23 16:18 Globulin 3.1 g/dL (1.3-4.6) 05/15/23 16:18 No radiology studies performed this visit Discharge Plan Discharge Patient Disposition: Home Clinical Impression: Hypertension, Adrenal adenoma Condition: Stable Prescriptions: No Action clonidine HCl 0.3 mg tablet 0.3 mg PO QID losartan 100 mg tablet 50 mg PO BID cephalexin 250 mg capsule 250 mg PO BID chlorthalidone 25 mg tablet PO potassium chloride 10 mEq tablet extended release PO spironolactone 25 mg tablet 25 mg PO BID Qty: 120 0RF insulin glargine [Lantus U-100 Insulin] 100 unit/mL solution 75 unit SUBCUT BID Novolin R Regular U100 Insulin 100 unit/mL solution 10 unit SUBCUT DIRECTED Protonix 40 mg tablet,delayed release (DR/EC) 40 mg PO BID 42 Days Qty: 84 1RF Discharge Orders: Discharge ED (Routine); Ordered 05/15/23 Ordered By: Sebastian Calles Referrals: Ben Hernández MD [Primary Care Provider] - Discharge Diet: Advance as tolerated Discharge Activity: Limit activity as instructed Patient Instructions: Hypertension (ED) Coding Level of Care Code ED Planer Setup Operator for Shelton Corona
== END 2023-05-15 18:15 | disposition home or self-care (01) ==
PROVIDERS: Family Medicine; Emergency Provider Emergency Medicine; PCP Family Medicine
DX: I10 Essential (primary) hypertension (principal); D35.00 Benign neoplasm of unspecified adrenal gland; Z79.4 Long term (current) use of insulin; E11.9 Type 2 diabetes mellitus without complications
CPT/HCPCS: 36415; 80053; 85025; 99283

== ENCOUNTER → 2023-05-19 08:55 | Outpatient (BNVA) | payer MEDICAID, SELFPAY | PROVIDERS: PCP Family Medicine; Visit Provider Internal Medicine | DX: E87.6 Hypokalemia (principal); N39.0 Urinary tract infection, site not specified | CPT/HCPCS: 36415; 80048; 81001 ==

== ENCOUNTER 2023-05-22 09:45 | Outpatient (CLI) | payer MEDICAID, SELFPAY ==
[2023-05-22 10:35] LABS: Anion Gap 15.3 (5-19); Blood Urea Nitrogen 13 mg/dL (8-23); Calcium 9.2 mg/dL (8.5-10.5); Carbon Dioxide 25 mmol/L (22-29); Chloride 101 mmol/L (98-107); Glucose 165 mg/dL (65-115); Magnesium 1.9 mg/dL (1.7-2.3); Osmolality Calculated 288 mOsm/kg (285-295); Potassium 4.3 mmol/L (3.5-5.1); Sodium 137 mmol/L (136-145)
[2023-05-22 10:50] LABS: 25 Hydroxy Vitamin D 29 ng/mL (30-100)
== END 2023-05-22 09:46 | disposition home or self-care (01) ==
LOC: LAB 09:47
PROVIDERS: PCP Family Medicine; Visit Provider Internal Medicine
DX: E87.6 Hypokalemia (principal); D35.00 Benign neoplasm of unspecified adrenal gland; E87.5 Hyperkalemia
CPT/HCPCS: 80048; 82306; 83735

== ENCOUNTER 2023-05-25 16:29 | Outpatient (CLI) | payer MEDICAID, SELFPAY ==
[2023-05-25 17:21] LABS: Anion Gap 13.8 (5-19); Blood Urea Nitrogen 15 mg/dL (8-23); Calcium 9.1 mg/dL (8.5-10.5); Carbon Dioxide 28 mmol/L (22-29); Chloride 97 mmol/L (98-107); Glomerular Filtration Rate 50.2 mL/min (90-130); Glucose 195 mg/dL (65-115); Osmolality Calculated 286 mOsm/kg (285-295); Potassium 3.8 mmol/L (3.5-5.1); Sodium 135 mmol/L (136-145)
== END 2023-05-25 16:30 | disposition home or self-care (01) ==
LOC: LAB 16:33
PROVIDERS: PCP Family Medicine; Visit Provider Family Medicine
DX: E87.5 Hyperkalemia (principal)
CPT/HCPCS: 36415; 80048

== ENCOUNTER 2023-06-01 20:24 | Emergency (ER) | payer MEDICAID, SELFPAY ==
--- NOTE | 2023-06-01 20:26 | XRR_ITS ---
PROCEDURE INFORMATION: Exam: XR Chest Exam date and time: 06/01/2023 9:30 PM Age: 62 years old Clinical indication: Pain; Chest pressure; Additional info: Cp TECHNIQUE: Imaging protocol: Radiologic exam of the chest. Views: 1 view. COMPARISON: CT lung screening [id number] 12/16/2022 2:56 PM FINDINGS: Lungs: No focal consolidation. Pleural spaces: No evidence of pneumothorax. No evidence of pleural effusion. Heart/Mediastinum: Cardiomediastinal silhouette is within normal limits. Bones/joints: No evidence of acute osseous abnormality. XR/XR chest 1V portable [id number] IMPRESSION: 1. No acute cardiopulmonary abnormality.
--- NOTE | 2023-06-01 20:27 | ECG_ITS ---
[facility] Test Date: 2023-06-01 Pat Name: Wanda Balbuena Department: Room: Gender: Female Presidential Support Specialist: : 1960 Requested By: Sebastian Calles Order Number: [id number] Reading MD: Jah Brown M.D. Measurements Intervals [place] Rate: 96 P: 42 NE: 148 QRS: -7 QRSD: 103 T: 31 QT: 344 QTc: 437 Interpretive Statements SINUS RHYTHM POSSIBLE LEFT ATRIAL ENLARGEMENT [-0.1mV P-WAVE IN V1/V2] LOW QRS VOLTAGE IN PRECORDIAL LEADS [QRS DEFLECTION < 1.0 mV IN CHEST LEADS] POSSIBLE ANTERIOR MYOCARDIAL INFARCTION , PROBABLY OLD [30 ms Q WAVE IN V3/V4, OR R < 0.2 mV IN V4] INFERIOR MYOCARDIAL INFARCTION , PROBABLY OLD [40+ ms Q WAVE AND/OR ST/T ABNORMALITY IN II/aVF] Compared to ECG 02/26/2021 12:09:45 No significant changes Electronically Signed On 06-02-2023 17:31:35 BLOCK SAWYER by Jah Brown M.D. [id number]
[2023-06-01 20:32] VITALS: BP 194/117; PULSE 91; RESP 16; TEMP 36.7; O2SAT 97
--- NOTE | 2023-06-01 20:44 | PC.NURSE ---
Pt on bedside radiation monitor
[2023-06-01 20:48] LABS: Basophils # 0.1 10^3/uL (0.0-0.1); Basophils % 0.6 %; Eosinophils # 0.6 10^3/uL (0.0-0.8); Eosinophils % 6.3 %; Hematocrit 43.6 % (36-47); Lymphocytes # 2.6 10^3/uL (0.8-4.8); Lymphocytes % 29.2 %; Mean Corpuscular HGB Conc 33.9 g/dL (30-55); Mean Corpuscular Volume 88.3 fl (85-98); Mean Platelet Volume 11.6 fL (7.4-10.4); Monocytes # 0.7 10^3/uL (0.2-0.9); Monocytes % 7.4 %; Neutrophils # 5.06 10^3/uL (1.8-7.7); Neutrophils % 56.2 %; Nucleated Red Blood Cells % 0 %; Platelet Count 252 10^3/cmm (157-399); Red Blood Count 4.94 10^6/uL (3.85-5.65); Red Cell Distribution Width 13.2 % (12.1-15.1); White Blood Count 9.01 10^3/uL (3.29-11.43)
--- NOTE | 2023-06-01 20:52 | ED_ITS ---
HPI - Arrhythmia/Palpitations 2 General: Chief Complaint: Arrhythmia/Palpitations Stated Complaint: Chest Pains Time Seen by Provider: 06/01/23 20:37 History of Present Illness: 62-year-old female comes in today with c omplaints of palpitations. Patient denies any chest pain. Patient has a history of diabetes mellitus and adrenal adenoma. Patient at this time takes losartan 100 mg divided and 50 mg twice a day, clonidine 0.3 mg 4 times a day, and spironolactone 25 mg. 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 Patient is concerned her potassium may be elevated. Patient is also awaiting a referral to Dr. Lepe office for further evaluation of the palpitations. Patient appears nontoxic. Patient appears in no pain. Review of Systems 2 General: Reports: 10 or more systems reviewed and unremarkable except in HPI and below PFSH ED 2 PFSH: Medical History History of colon polyps Diabetes Hypertension Surgical History Hx of section Hx of cholecystectomy Hx of colectomy Physical Exam 2 Const: COMMON NORMALS: alert HENMT: COMMON NORMALS: normocephalic HEAD & SCALP: normocephalic Neck/C-Spine: COMMON NORMALS: full ROM Resp: COMMON NORMALS: normal respiratory effort and clear to auscultation bilaterally AUSCULTATION: clear to auscultation bilaterally Cardio: COMMON NORMALS: regular rhythm RATE: tachycardic RHYTHM: regular rhythm and other (Occasional PVC is noted on EKG.) GI: AUSCULTATION: Yes normoactive bowel sounds PALPATION: No Tenderness to palpation present (GI) Extremity: COMMON NORMALS: no pedal edema Neuro: SENSORIUM/ORIENTATION: Yes alert Skin: COMMON NORMALS: turgor normal GENERAL SKIN EXAM: turgor normal Course 2 Vital Signs: Vital signs: Vital Signs Temperature 98.0 F 06/01/23 20:32 Pulse Rate 91 06/01/23 21:10 Respiratory Rate 18 06/01/23 21:10 Blood Pressure 174/95 06/01/23 21:10 Pulse Oximetry 96 06/01/23 21:10 Oxygen Delivery Me thod Room Air 06/01/23 21:10 MDM - Arrhythmia/Palpitations Medical Decision Making 62-year-old female comes in today for concerns of palpitations. On exam patient's lungs are clear to auscultation. Skin is warm and dry. EKG shows a sinus rhythm with a regular rate at 96 bpm. Occasional PVC is noted on bedside monitoring. Differential diagnosis includes but not limited to arrhythmia, PVCs, hyperkalemia. EKG showed no significant changes from prior exam, it had a rate of [address] elevation and no ectopy recorded. CBC was unremarkable. CMP noted a potassium 3.9, creatinine 1.3, blood glucose 185, and sodium 135. It was noted that when patient felt the palpitation there was a premature beat on the monitor but was not able to record this on the twelve-lead EKG. Suspect an occasional PVC which is causing the patient's discomfort. Will recommend follow-up with cardiology and Holter monitor for further evaluation. Patient reported understanding and agreed to plan. Case management was requested to help with the referral and the Holter monitor. Lab Data 06/01/23 20:39 06/01/23 20:39 Laboratory Results WBC 9.01 10^3/uL (3.29-11.43) 06/01/23 20:39 RBC 4.94 10^6/uL (3.85-5.65) 06/01/23 20:39 Hgb 14.80 g/dL (11.27-16.99) 06/01/23 20:39 Hct 43.6 % (36-47) 06/01/23 20:39 MCV 88.3 fl (85-98) 06/01/23 20:39 MCH 30.0 pg (27-33) 06/01/23 20:39 MCHC 33.9 g/dL (30-55) 06/01/23 20:39 RDW 13.2 % (12.1-15.1) 06/01/23 20:39 Plt Count 252 10^3/cmm (157-399) 06/01/23 20:39 MPV 11.6 fL (7.4-10.4) H 06/01/23 20:39 Neut % (Auto) 56.2 % 06/01/23 20:39 Lymph % (Auto) 29.2 % 06/01/23 20:39 [place] % (Auto) 7.4 % 06/01/23 20:39 Eos % (Auto) 6.3 % 06/01/23 20:39 Baso % (Auto) 0.6 % 06/01/23 20:39 Neut # (Auto) 5.06 10^3/uL (1.8-7.7) 06/01/23 20:39 Lymph # (Auto) 2.6 10^3/uL (0.8-4.8) 06/01/23 20:39 [place] # (Auto) 0.7 10^3/uL (0.2-0.9) 06/01/23 20:39 Eos # (Auto) 0.6 10^3/uL (0.0-0.8) 06/01/23 20:39 Baso # (Auto) 0.1 10^3/uL (0.0-0.1) 06/01/23 20:39 Nucleated RBC % (auto) 0 % 06/01/23 20:39 Nucleated RBCs # 0.0 /100WBC 06/01/23 20:39 PT 12.60 SECONDS (12.1-14.9) 06/01/23 20:39 INR 0.92 (0.8-1.2) 06/01/23 20:39 Sodium 135 mmol/L (136-145) L 06/01/23 20:39 Potassium 3.9 mmol/L (3.5-5.1) 06/01/23 20:39 Chloride 96 mmol/L (98-107) L 06/01/23 20:39 Carbon Dioxide 24 mmol/L (22-29) 06/01/23 20:39 Anion Gap 18.9 (5-19) 06/01/23 20:39 BUN 19 mg/dL (8-23) 06/01/23 20:39 Creatinine 1.3 mg/dL (0.5-0.9) H 06/01/23 20:39 GFR Calculation 41.4 mL/min (90-130) L 06/01/23 20:39 Glucose 185 mg/dL (65-115) H 06/01/23 20:39 Calculated Osmolality 287 mOsm/kg (285-295) 06/01/23 20:39 Calcium 9.3 mg/dL (8.5-10.5) 06/01/23 20:39 AST 18 U/L (0-32) 06/01/23 20:39 ALT 16 U/L (0-33) 06/01/23 20:39 Alkaline Phosphatase 96 U/L (35-105) 06/01/23 20:39 Troponin T Baseline 10 ng/L (0-10) 06/01/23 20:39 Total Protein 7.3 g/dL (6.6-8.7) 06/01/23 20:39 Albumin 4.4 g/dL (3.5-5.2) 06/01/23 20:39 Globulin 2.9 g/dL (1.3-4.6) 06/01/23 20:39 Lipase 47 U/L (13-60) 06/01/23 20:39 XR interpretation done by ED provider, pending radiology final review Discharge Plan Discharge Patient Disposition: Home Clinical Impression: Palpitations, Ventricular premature beats Condition: Stable Prescriptions: No Action clonidine HCl 0.3 mg tablet 0.3 mg PO QID losartan 100 mg tablet 50 mg PO BID cephalexin 250 mg capsule 250 mg PO BID chlorthalidone 25 mg tablet PO potassium chloride 10 mEq tablet extended release PO spironolactone 25 mg tablet 25 mg PO BID Qty: 120 0RF insulin glargine [Lantus U-100 Insulin] 100 unit/mL solution 75 unit SUBCUT BID ciprofloxacin HCl 250 mg tablet 250 mg PO BID Qty: 6 0RF Novolin R Regular U100 Insulin 100 unit/mL solution 10 unit SUBCUT DIRECTED Protonix 40 mg tablet,delayed release (DR/EC) 40 mg PO BID 42 Days Qty: 84 1RF Discharge Orders: Discharge ED (Routine); Ordered 06/01/23 Ordered By: Hudson Delgado Referrals: Ben Hernández MD [Primary Care Provider] - Discharge Diet: Usual diet Discharge Activity: Increase activity as tolerated Patient Instructions: Heart Palpitations (ED) Activity Restrictions/Additional Instructions: Continue with routine medications. Case management will contact you regarding a follow-up with cardiology and for a Holter monitor for further evaluation of your heart rhythm. Follow-up with primary care as needed until that appointment. Return to ER for worsening symptoms. Coding Level of Care Code ED Director Of Occupational Health for Shelton Corona
[2023-06-01 21:01] LABS: INR 0.92 (0.8-1.2)
[2023-06-01 21:08] LABS: Troponin(5th) Baseline 10 ng/L (0-10)
[2023-06-01 21:10] VITALS: BP 174/95; PULSE 91; RESP 18; O2SAT 96
[2023-06-01 21:12] LABS: Alanine Aminotransferase 16 U/L (0-33); Albumin Level 4.4 g/dL (3.5-5.2); Alkaline Phosphatase 96 U/L (35-105); Aspartate Amino Transferase 18 U/L (0-32); Blood Urea Nitrogen 19 mg/dL (8-23); Calcium 9.3 mg/dL (8.5-10.5); Carbon Dioxide 24 mmol/L (22-29); Chloride 96 mmol/L (98-107); Creatinine Clr Calc Pharmacy 50.4071; Globulin 2.9 g/dL (1.3-4.6); Glomerular Filtration Rate 41.4 mL/min (90-130); Glucose 185 mg/dL (65-115); Lipase 47 U/L (13-60); Osmolality Calculated 287 mOsm/kg (285-295); Sodium 135 mmol/L (136-145); Total Protein 7.3 g/dL (6.6-8.7)
[2023-06-01 21:26] LABS: Anion Gap 18.9 (5-19); Potassium 3.9 mmol/L (3.5-5.1)
--- NOTE | 2023-06-01 22:06 | DCPLANNER ---
Message sent to cardiology for a follow up - with a holter monitor -
[2023-06-01 23:33] LABS: Total Bilirubin 0.2 mg/dL (0.15-1.2)
== END 2023-06-01 21:49 | disposition home or self-care (01) ==
PROVIDERS: Emergency Medicine; Emergency Provider Nurse Practitioner Family; PCP Family Medicine
DX: R00.2 Palpitations (principal); I49.3 Ventricular premature depolarization; Z79.4 Long term (current) use of insulin; E11.9 Type 2 diabetes mellitus without complications; I10 Essential (primary) hypertension
CPT/HCPCS: 71045; 80053; 83690; 84484; 85025; 85610; 93005; 99285

== ENCOUNTER → 2023-06-06 13:24 | Outpatient (BNVA) | payer MEDICAID, SELFPAY | PROVIDERS: PCP Family Medicine; Visit Provider Internal Medicine | DX: D35.00 Benign neoplasm of unspecified adrenal gland (principal); E87.5 Hyperkalemia | CPT/HCPCS: 36415; 80048 ==

== ENCOUNTER 2023-06-23 09:04 | Outpatient (CLI) | payer MEDICAID, SELFPAY ==
[2023-06-23 09:47] LABS: Anion Gap 15.5 (5-19); Blood Urea Nitrogen 14 mg/dL (8-23); Calcium 9.3 mg/dL (8.5-10.5); Carbon Dioxide 26 mmol/L (22-29); Chloride 99 mmol/L (98-107); Glomerular Filtration Rate 63.2 mL/min (90-130); Glucose 177 mg/dL (65-115); Osmolality Calculated 287 mOsm/kg (285-295); Potassium 4.5 mmol/L (3.5-5.1); Sodium 136 mmol/L (136-145)
== END 2023-06-23 09:05 | disposition home or self-care (01) ==
LOC: LAB 09:05
PROVIDERS: PCP Family Medicine; Visit Provider Internal Medicine
DX: I48.0 Paroxysmal atrial fibrillation (principal)
CPT/HCPCS: 36415; 80048

== ENCOUNTER 2023-07-24 09:16 | Outpatient (CLI) | payer MEDICAID, SELFPAY ==
--- NOTE | 2023-07-24 09:30 | CT_ITS ---
WS: [id number] CT adrenals with and without contrast. HISTORY: adrenal adenoma Noncontrast 2 mm imaging is performed through the abdomen with attention to the adrenal glands. Addit ional 1 minute and 15 minute delayed images are then performed through the adrenal glands. CONTRAST: Omnipaque 350; 95 mL IV. DLP: 1192.[address] scans at [facility] use at least one of these dose optimization techniques: automated e xposure control; mA and/or kV adjustment per patient size (includes targeted exams where dose is matc hed to clinical indication); or iterative reconstruction. COMPARISON: 02/27/2021 Lower thorax: Small hiatal hernia. Mild cardiomegaly. Liver: Normal. No intrahepatic dilatation. Gallbladder: Prior cholecystectomy. Pancreas: Limited by breathing motion. There is mild diffuse atrophy. Duct dilatation or mass to be d ifficult to exclude. Mild progression of pancreatic atrophy since 2017. There is a slightly bulbous a ppearance of the distal pancreatic tail which is unchanged. Spleen: Normal. ADRENAL GLANDS. RIGHT: Normal. No mass or enlargement. LEFT: Lobulated well-circumscribed low-attenuation mass associated with the LEFT kidney. Mass measure s 3.4 x 3.5 cm. This mass has been present for multiple prior years. Multiple prior imaging studies h ave been performed indicating benign adenoma. Absolute washout value of 60%. Relative washout value 4 7% are both consistent with an adenoma. With no history of malignancy this is most likely an adenoma. Right kidney: Normal. Left kidney: Normal. Aorta: Mild atherosclerosis. No GI tract obstruction. There is motion artifact on all phases. No obstructive pattern. No adenopath y or ascites. Ventral abdominal wall surgical repair of a hernia. CT/CT abdomen wo/w con [id number] IMPRESSION: 1. Long-term stability of the LEFT adrenal mass measuring 3.4 x 3.5 cm. Mass h as very slightly increased in size since 2002. Absolute and relative washout va lues indicate this is a benign adenoma. Statistically benign adenoma based upon no history of malignancy. 2. Quality of examination compromised by motion artifact. 3. Prior cholecystectomy. 4. Atrophic pancreas.
[2023-07-24] MEDS: iohexol 350 mg/mL 500 mL Btl (per mL) IV (10:06)
== END 2023-07-24 09:17 | disposition home or self-care (01) ==
LOC: RAD 09:16
PROVIDERS: PCP Family Medicine; Visit Provider Internal Medicine
DX: D35.00 Benign neoplasm of unspecified adrenal gland (principal); E87.6 Hypokalemia; K86.89 Other specified diseases of pancreas
CPT/HCPCS: 74170; Q9967

== ENCOUNTER 2023-09-13 07:58 | Outpatient (CLI) | payer MEDICAID, SELFPAY ==
[2023-09-13 08:18] VITALS: BMI 27.2
--- NOTE | 2023-09-13 09:19 | ECG_ITS ---
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
--- NOTE | 2023-09-13 09:20 | NMCV_ITS ---
NM renzo perf SPECT r/s* [id number] Wanda Balbuena Age: 62 Gender: F : 1960 Exam Date: 09/13/2023 09:09 Ordering Phys: Jah Brown MD ([email or web address]) Technologist: ALENA Hays Exam Location: [facility] Indications: CP, RBBB STRESS TEST [facility] IMAGE PROTOCOL Rest/Stress 1 Exercise Day Radiopharmaceutical Dose (mCi) Administration Site Administered by Rest: Tc-99m 10.9 IV ALENA Hays Sestamibi Stress:Tc-99m 32.4 IV ALENA Hays Sestamiwanda Rest: 13-Sep-2023 60 Discovery 630 Stress: 13-Sep-2023 15 Discovery 630 Radiopharmaceutical was injected at 91 % maximum heart rate. Images obtained in supine and prone position. SPECT RESULTS Technical Quality: Good Raw Data Analysis: Breast attenuation Image Corrections: No attenuation or motion correction applied Summed Stress Score: 1 Summed Rest Score: 0 Summed Difference Score: 1 PERFUSION FINDINGS A small area of slightly decreased tracer uptake in the mid inferolateral region with reversibility, in the supine position. With the prone imaging, no significant perfusion normalities were noted. No significant defects were noted in the blackout map FUNCTIONAL RESULTS (calculated via Gated SPECT) Stress Image LV EF (%): 77 Stress EDV (mL):81 TID: 0.96 Stress ESV (mL):19 FUNCTIONAL FINDINGS: Segmental wall motion analysis revealing no gross wall motion abnormalities IMPRESSIONS 1. Myocardial cardial perfusion imaging revealing a small area of slightly decreased tracer uptake in the mid inferolateral region with reversibility, with the supine imaging. No significant peripheral abnormalities with the prone imaging. Because of the inconsistency, most likely this is artifactual 2. Normal LV ejection fraction of 77%. 3. LV wall motion analysis revealing no gross wall motion abnormalities. 4. Normal LV volume . Possibly no significant coronary ischemia based on the above findings Dr Jah Borwn MD FACC (Electronically Signed) Final Date: 13 September 2023 22:38 S
[2023-09-13 10:25] VITALS: BP 117/89; PULSE 72
== END 2023-09-13 07:59 | disposition home or self-care (01) ==
PROVIDERS: PCP Family Medicine; Visit Provider Internal Medicine Cardiovascular Disease
DX: Z98.61 Coronary angioplasty status (principal); R94.39 Abnormal result of other cardiovascular function study
CPT/HCPCS: 36415; 78452; 93017; A9500

== ENCOUNTER 2023-10-10 09:53 | Outpatient (CLI) | payer MEDICAID, SELFPAY ==
[2023-10-10 10:44] LABS: Alanine Aminotransferase 23 U/L (0-33); Albumin Level 4.3 g/dL (3.5-5.2); Alkaline Phosphatase 94 U/L (35-105); Anion Gap 14.1 (5-19); Aspartate Amino Transferase 21 U/L (0-32); Blood Urea Nitrogen 11 mg/dL (8-23); Calcium 9.4 mg/dL (8.5-10.5); Carbon Dioxide 27 mmol/L (22-29); Chloride 103 mmol/L (98-107); Globulin 3.4 g/dL (1.3-4.6); Glomerular Filtration Rate 72.4 mL/min (90-130); Glucose 121 mg/dL (65-115); Osmolality Calculated 289 mOsm/kg (285-295); Potassium 5.1 mmol/L (3.5-5.1); Sodium 139 mmol/L (136-145); Total Bilirubin 0.3 mg/dL (0.15-1.2); Total Protein 7.7 g/dL (6.6-8.7)
== END 2023-10-10 09:54 | disposition home or self-care (01) ==
LOC: LAB 09:58
PROVIDERS: PCP Family Medicine; Visit Provider Internal Medicine
DX: D35.00 Benign neoplasm of unspecified adrenal gland (principal); E87.5 Hyperkalemia
CPT/HCPCS: 36415; 80053

== ENCOUNTER → 2023-11-22 15:56 | Outpatient (BNVA) | payer MEDICAID, SELFPAY | PROVIDERS: PCP Family Medicine; Visit Provider Internal Medicine Cardiovascular Disease | DX: R06.02 Shortness of breath (principal); E78.5 Hyperlipidemia, unspecified; R94.31 Abnormal electrocardiogram [ECG] [EKG]; I49.9 Cardiac arrhythmia, unspecified; R00.1 Bradycardia, unspecified | CPT/HCPCS: 36415; 80048; 80061 ==

== ENCOUNTER 2023-12-13 10:08 | Outpatient (CLI) | payer MEDICAID, SELFPAY ==
[2023-12-13 11:13] LABS: Anion Gap 13.6 (5-19); Blood Urea Nitrogen 10 mg/dL (8-23); Calcium 9.2 mg/dL (8.5-10.5); Carbon Dioxide 28 mmol/L (22-29); Chloride 106 mmol/L (98-107); Glomerular Filtration Rate 72.2 mL/min (90-130); Glucose 98 mg/dL (65-115); Osmolality Calculated 295 mOsm/kg (285-295); Potassium 4.6 mmol/L (3.5-5.1); Sodium 143 mmol/L (136-145)
== END 2023-12-13 10:09 | disposition home or self-care (01) ==
LOC: LAB 10:08
PROVIDERS: PCP Family Medicine; Visit Provider Internal Medicine
DX: E87.6 Hypokalemia (principal)
CPT/HCPCS: 36415; 80048

== ENCOUNTER 2023-12-27 11:33 | Outpatient (CLI) | payer MEDICAID, SELFPAY ==
[2023-12-27 12:12] LABS: Anion Gap 14.5 (5-19); Blood Urea Nitrogen 18 mg/dL (8-23); Calcium 9.6 mg/dL (8.5-10.5); Carbon Dioxide 27 mmol/L (22-29); Chloride 100 mmol/L (98-107); Glomerular Filtration Rate 72.2 mL/min (90-130); Glucose 216 mg/dL (65-115); Osmolality Calculated 292 mOsm/kg (285-295); Potassium 4.5 mmol/L (3.5-5.1); Sodium 137 mmol/L (136-145)
== END 2023-12-27 11:34 | disposition home or self-care (01) ==
LOC: LAB 11:35
PROVIDERS: PCP Family Medicine; Visit Provider Family Medicine
DX: E11.9 Type 2 diabetes mellitus without complications (principal)
CPT/HCPCS: 36415; 80048

== ENCOUNTER 2024-01-08 11:55 | Outpatient (CLI) | payer MEDICAID, SELFPAY ==
--- NOTE | 2024-01-08 12:06 | XRR_ITS ---
PROCEDURE INFORMATION: Exam: XR Left Hand Exam date and time: 01/08/2024 12:09 PM Age: 63 years old Clinical indication: Patient HX: Knot in the left hand. No acute injury to that hand. PT states she dropped a cinder block on the right hand. Pain has increased and goes down the pointer finger. ; Additional info: Pain in the left hand TECHNIQUE: Imaging protocol: Radiologic exam of the left hand. Views: 3 or more views. COMPARISON: No relevant prior studies available. FINDINGS: Bones/joints: No acute fracture or dislocation is appreciated. There is joint space narrowing with small osteophytes involving the 1st carpometacarpal joint and to a lesser degree the DIP joints. No erosions are noted. Bony mineralization is normal. Soft tissues: Normal. XR/XR hand LT min 3V* [id number] IMPRESSION: 1. Mild osteoarthritis.
--- NOTE | 2024-01-08 12:06 | XRR_ITS ---
PROCEDURE INFORMATION: Exam: XR Right Hand Exam date and time: 01/08/2024 12:09 PM Age: 63 years old Clinical indication: Patient HX: Knot in the left hand. No acute injury to that hand. PT states she dropped a cinder block on the right hand. Pain has increased and goes down the pointer finger. ; Additional info: Pain in the right hand TECHNIQUE: Imaging protocol: Radiologic exam of the right hand. Views: 3 or more views. COMPARISON: No relevant prior studies available. FINDINGS: Bones/joints: No fracture or dislocation is appreciated. There is joint space narrowing with small osteophytes involving the 1st carpometacarpal joint and to a lesser degree the DIP joints. Bony mineralization is normal. No erosions are noted. Soft tissues: Normal. XR/XR hand RT min 3V* [id number] IMPRESSION: 1. Mild osteoarthritis.
== END 2024-01-08 11:56 | disposition home or self-care (01) ==
LOC: RAD 11:56
PROVIDERS: PCP Family Medicine; Visit Provider Family Medicine
DX: M79.644 Pain in right finger(s) (principal); M79.642 Pain in left hand; W20.8XXA Other cause of strike by thrown, projected or falling object, initial encounter
CPT/HCPCS: 73130

== ENCOUNTER → 2024-01-24 08:23 | Outpatient (BNVA) | payer MEDICAID, SELFPAY | PROVIDERS: PCP Family Medicine; Visit Provider Obstetrics & Gynecology | DX: R39.9 Unspecified symptoms and signs involving the genitourinary system (principal) | CPT/HCPCS: 81000 ==

== ENCOUNTER 2024-03-07 08:54 | Outpatient (CLI) | payer MEDICAID, SELFPAY ==
--- NOTE | 2024-03-07 08:57 | CT_ITS ---
WS: [id number] LDCT LUNG CANCER SCREENING HISTORY: HX OF TOBACCO USE TECHNIQUE: Axial imaging performed from the apices to 1 cm below the costophrenic angles. Coronal and sagittal reformats are submitted with axial MIP series. All CT scans at [facility] use at least one of these dose optimization techniques: automated exposure control; mA and/or kV adjustment per patient size (includes targeted exams where dose is matched to clinical indication); or iterativ e reconstruction. DLP: 79.00 mGy.cm DIvol: Mean CTDIvol: 1.70 (mGy) COMPARISON: 12/14/2022, 01/24/2017 Diagnostic quality: Satisfactory Lungs: Pulmonary hyperexpansion. Long-term stability of 3 mm nodules along the RIGHT fissure. Stable subpleural 3 mm nodule anterior RIGHT upper lobe. There are a few additional tiny micronodules noted bilaterally. No mass or new nodule. No endobronchial lesions. Heart: Normal size heart with no pericardial effusion.. Other findings: Mild atherosclerosis aorta. No mediastinal or hilar adenopathy. Small hiatal hernia. 3.1 cm LEFT adrenal adenoma. Mild increase in thoracic kyphosis. No osteoblastic or osteolytic lesion s. CT/CT lung screening 79282 IMPRESSION: LUNG-RADS: 2-Benign Appearance or Behavior FOLLOW UP: 12 Month: Continue annual screening with LDCT OTHER FINDINGS (S MODIFIER): None.
== END 2024-03-07 08:55 | disposition home or self-care (01) ==
PROVIDERS: PCP Family Medicine; Visit Provider Family Medicine
DX: Z12.2 Encounter for screening for malignant neoplasm of respiratory organs (principal); J98.4 Other disorders of lung; R91.8 Other nonspecific abnormal finding of lung field; K44.9 Diaphragmatic hernia without obstruction or gangrene; D35.02 Benign neoplasm of left adrenal gland
CPT/HCPCS: 71271

== ENCOUNTER 2024-04-01 12:16 | Outpatient (CLI) | payer MEDICAID, SELFPAY ==
[2024-04-01 12:57] LABS: Anion Gap 13.8 (5-19); Blood Urea Nitrogen 18 mg/dL (8-23); Calcium 9.5 mg/dL (8.5-10.5); Carbon Dioxide 26 mmol/L (22-29); Chloride 99 mmol/L (98-107); Glucose 214 mg/dL (65-115); Osmolality Calculated 286 mOsm/kg (285-295); Potassium 4.8 mmol/L (3.5-5.1); Sodium 134 mmol/L (136-145)
== END 2024-04-01 12:17 | disposition home or self-care (01) ==
LOC: LAB 12:17
PROVIDERS: PCP Family Medicine; Visit Provider Family Medicine
DX: I10 Essential (primary) hypertension (principal)
CPT/HCPCS: 36415; 80048

== ENCOUNTER → 2024-04-09 10:10 | Outpatient (BNVA) | payer MEDICAID, SELFPAY | PROVIDERS: PCP Family Medicine; Visit Provider Obstetrics & Gynecology | DX: R87.619 Unspecified abnormal cytological findings in specimens from cervix uteri (principal) | CPT/HCPCS: 87624 ==

== ENCOUNTER → 2024-04-23 07:56 | Outpatient (BNVA) | payer MEDICAID, SELFPAY | PROVIDERS: PCP Family Medicine; Visit Provider Obstetrics & Gynecology | DX: R89.6 Abnormal cytological findings in specimens from other organs, systems and tissues (principal); Z98.890 Other specified postprocedural states | CPT/HCPCS: 76830 ==

== ENCOUNTER 2024-05-03 10:27 | Outpatient (CLI) | payer MEDICAID, SELFPAY ==
--- NOTE | 2024-05-03 10:30 | XR_ITS ---
WS: [id number] PA chest with flat and upright abdomen, 05/03/2024 Clinical Data: ABDOMINAL PAIN Comparison: None. Findings: PA chest: No nodules, masses or effusions are seen. The heart is normal. The pulmonary vascularity is not remarkable. No pneumonia or pneumothorax is seen. Flat and upright films of the abdomen no air is seen beneath the diaphragms. There is a moderate amount of air in the small bowel, stomach and colon. There is a moderate amount of fecal material in the colon. Midline abdominal sutures are seen. There is minimal vascular calcification. No obstruction is present. XR/XR abdomen 3V [id number] Impression: 1. Negative chest. 2. Moderate amount of fecal material in the colon.
== END 2024-05-03 10:28 | disposition home or self-care (01) ==
LOC: RAD 10:28
PROVIDERS: PCP Family Medicine; Visit Provider Family Medicine
DX: R10.32 Left lower quadrant pain (principal); K59.00 Constipation, unspecified
CPT/HCPCS: 74021

== ENCOUNTER 2024-05-16 09:13 | Day surgery (SDC) | payer MEDICAID, SELFPAY ==
--- NOTE | 2024-05-15 22:50 | W.PM.OPSFHP ---
Same Day Surgery H&P Indication for Procedure/HPI DATE OF PROCEDURE: May 15, 2024 CHIEF COMPLAINT/INDICATIONFOR SURGICAL PROCEDURE: abnormal pap and ultrasound PREOP DIAGNOSIS: abnormal pap and thickened endometrium on ultrasound PLANNED PROCEDURE: Operation Date: 05/16/24 10:50 Proposed Procedures p Hysteroscopy w/ Endometrial Sampling 18112, 43178, R87.619, N93.9(Not Applicable) - Rodolfo Lake MD s Poylpectomy(Not Applicable) - Rodolfo Lake MD s Cervical Conization(Not Applicable) - Rodolfo Lake MD 63 y.o. with abnormal pap and thickened endometrium on ultrasound now scheduled for hysteroscopy, endometrial sampling / polypectomy, conization of cervix Medications/Allergies* Home Medications ?Medication ?Instructions ?Recorded ?Confirmed ?Type clonidine HCl 0.3 mg tablet 0.3 mg PO QID 02/25/22 05/14/24 History potassium chloride 10 mEq 10 meq PO PRN PRN Hypokalemia 12/21/22 05/14/24 History tablet,extended release insulin glargine 100 unit/mL 75 unit SUBCUT DAILY 04/26/23 05/14/24 History subcutaneous solution (Lantus U-100 Insulin) Allergies/Adverse Reactions Allergy/AdvReac Type Severity Reaction Status Date / Time amlodipine Allergy ADR-Headach Verified 05/14/24 10:15 e cephalexin Allergy Unknown Verified 05/14/24 10:15 hydralazine Allergy Unknown Verified 05/14/24 10:15 hydromorphone Allergy ADR-Vomitin Verified 05/14/24 10:15 g lisinopril Allergy ADR-Cough Verified 05/14/24 10:15 metoprolol Allergy ADV-Weaknes Verified 05/14/24 10:15 s Penicillins Allergy Unknown Verified 05/14/24 10:15 tramadol Allergy ADR-Headach Verified 05/14/24 10:15 e morphine AdvReac Intermediate ADR-Abdominal Verified 05/14/24 10:15 Pain TONY Inhibitors AdvReac Mild ADR-Cough Verified 05/14/24 10:15 Pertinent History/Comorbid Conditions* Medical History (Updated 02/17/24 @ 22:50 by Rodolfo Lake MD) History of colon polyps Diabetes Hypertension Surgical History (Updated 02/25/22 @ 10:02 by Jeevan Patino DO) Hx of section Hx of cholecystectomy Hx of colectomy Social History Smoking and tobacco/nicotine status: former use of tobacco/nicotine Pertinent Exam Findings alert, oriented x 3, clear to auscultation bilaterally and regular rate & rhythm Recommendations Surgery/Procedure today Coding Level of Care Code Acute Code for Chg Fwd Time Spent (min) 20
[2024-05-16] VITALS (14 sets, daily range): BP systolic 106–206; BP diastolic 54–127; PULSE 50–79; RESP 16–18; TEMP 36.3–36.8; O2SAT 92–100; BMI 28.3
--- NOTE | 2024-05-16 10:02 | ECG_ITS ---
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
--- NOTE | 2024-05-16 10:03 | ANES.PREANE2 ---
Pre-Anesthetic Assessment Height/Weight: Height 5 ft 8 in Weight 186 lb Preop Diagnosis: abnormal pap and endometrium Operation Date: 05/16/24 10:50 Proposed Procedures p Hysteroscopy w/ Endometrial Sampling 01183, 42174, R87.619, N93.9(Not Applicable) - Rodolfo Lake MD s Poylpectomy(Not Applicable) - Rodolfo Lake MD s Cervical Conization(Not Applicable) - Rodolfo Lake MD Was Beta Josias taken within 24 hours: N/A Was Clonidine taken within 24 hours: Yes Social No alcohol and No tobacco Exam alert, oriented x 3, clear to auscultation bilaterally and regular rate & rhythm Airway Submandibular: within normal limits Cervical ROM: within normal limits Mallampati: Class III Dentition: full Anesthetic Plan ASA status: 3 Anesthesia: General Other: No prior issues with anesthesia NPO since yesterday evening Patient has type 2 diabetes, on chronic insulin. Preop BS 176. Patient has sensor on right upper extremity History of hypertension on clonidine GERD, diet controlled Labs from March reviewed and acceptable for procedure Will obtain EKG Plan for general anesthesia Medications/Allergies Home Medications ?Medication ?Instructions ?Recorded ?Confirmed ?Last Taken ?Type clonidine HCl 0.3 mg tablet 0.3 mg PO QID 02/25/22 05/14/24 05/15/24 History potassium chloride 10 mEq 10 meq PO PRN PRN Hypokalemia 12/21/22 05/14/24 Unknown History tablet,extended release insulin glargine 100 unit/mL 75 unit SUBCUT DAILY 04/26/23 05/14/24 05/15/24 History subcutaneous solution (Lantus U-100 Insulin) pen needle, diabetic 32 gauge x #100 ea 07/18/23 05/13/24 Unknown Rx 1/4 (BD Ultra-Fine Micro Pen Needle) blood-glucose meter,continuous #1 ea 08/30/23 05/13/24 Unknown Rx (Dexcom G7 Reverberatory Furnace Supervisor) blood-glucose sensor (Dexcom G7 #9 ea 10/11/23 05/13/24 Unknown Rx Sensor device) insulin lispro 100 unit/mL 15 unit (0.15 mL) SUBCUT TID #20 mL 05/14/24 05/14/24 05/15/24 Rx subcutaneous solution (Humalog U-100 Insulin) Allergies Allergy/AdvReac Type Severity Reaction Status Date / Time amlodipine Allergy ADR-Headach Verified 05/14/24 10:15 e cephalexin Allergy Unknown Verified 05/14/24 10:15 hydralazine Allergy Unknown Verified 05/14/24 10:15 hydromorphone Allergy ADR-Vomitin Verified 05/14/24 10:15 g lisinopril Allergy ADR-Cough Verified 05/14/24 10:15 metoprolol Allergy ADV-Weaknes Verified 05/14/24 10:15 s Penicillins Allergy Unknown Verified 05/14/24 10:15 tramadol Allergy ADR-Headach Verified 05/14/24 10:15 e morphine AdvReac Intermediate ADR-Abdominal Verified 05/14/24 10:15 Pain TONY Inhibitors AdvReac Mild ADR-Cough Verified 05/14/24 10:15 [facility] Anesthesia Medical History History of colon polyps Diabetes Hypertension Surgical History Hx of section Hx of cholecystectomy Hx of colectomy Social History Smoking and tobacco/nicotine status: former use of tobacco/nicotine Data Anesthesia Cardiac Studies: Echocardiogram 02/27/21 Sestamibi Stress Test (Cardiology) 09/13/23 Holter Monitor 06/13/23
[2024-05-16] MEDS: sodium chloride 0.9% 1,000 ML 30 ML IV (10:33)
--- NOTE | 2024-05-16 10:35 | W.PM.OPSUD ---
Surgery/Procedure H&P Update DATE OF PROCEDURE: May 16, 2024 DATE H&P PERFORMED: 05/15/24 H&P UPDATE INFORMATION: I have reviewed H&P completed within last 30 days, I have examined patient prior to procedure and No changes to prior documentation PREOP DIAGNOSIS: abnormal pap and endometrium PLANNED PROCEDURE: Operation Date: 05/16/24 10:50 Proposed Procedures p Hysteroscopy w/ Endometrial Sampling 66131, 32616, R87.619, N93.9(Not Applicable) - Rodolfo Lake MD s Poylpectomy(Not Applicable) - Rodolfo Lake MD s Cervical Conization(Not Applicable) - Rodolfo Lake MD
[2024-05-16] MEDS: vasopressin 20 unit/mL INJ INJECTION (11:47)
--- NOTE | 2024-05-16 12:10 | PM.OP ---
Operative Report Date of procedure: May 16, 2024 Pre-op diagnosis: postmenopausal bleeding Post-op diagnosis: postmenopausal bleeding endometrial polyps Post-op findings: several endometrial polyps with varying sizes Minimal endometrial tissue Normal appearing cervix Procedure done: Hysteroscopy Endometrial sampling and polypectomy with Myosure Implants: none Specimens removed/disposition: endometrial tissue, sent to pathology Surgeon: Rodolfo Lake MD Anesthesia: MAC Estimated blood loss (mL): 0 Complications: none Findings: several endometrial polyps with varying sizes Minimal endometrial tissue Normal appearing cervix Condition: stable Disposition: PACU Brief History: 63 y.o. with postmenopausal bleeding Procedure: Informed consent signed. Patient was taken to the operating room. Anesthesia was induced. Patient was placed in dorsolithotomy position, prepped and draped for hysteroscopy. A bivalve speculum was placed in the vagina. The cervix and vagina were normal. The anterior lip of the cervix was grasped with a sharp-toothed tenaculum. The cervix was serially dilated with Hegar dilators. The uterus was sounded to 8 cm. A hysteroscope was placed into the endometrial cavity. There were several endometrial polyps with varying sizes. Minimal endometrial tissue was seen. The endocervical canal was normal. The endometrial cavity was otherwise normal. A Myosure device was then inserted and the endometrial polyps were removed and sent to pathology. Endometrial sampling was also done. The endometrial cavity was seen to be intact. The hysteroscope and Myosure were then removed. Endometrial tissue was sent to pathology. The sharp-toothed tenaculum was removed. There was no bleeding from the endometrial cavity or cervix. The patient was then placed supine and awakened and taken to the PACU. Postop condition: stable EBL: none Sponge and instruments counts were normal x 2 Complications: none
[2024-05-16] MEDS: fentaNYL 50 mcg/mL INJ 2mL IVP ×2 (12:25→12:34)
[2024-05-16] MEDS: ondansetron 2 mg/ML SDV 2 mL 4 MG IVP (12:51)
[2024-05-16] MEDS: diphenhydrAMINE 50 mg/mL SDV 1mL 12.5 MG IVP (13:05)
--- NOTE | 2024-05-16 13:56 | SUR.PHASEII ---
13:55 PT WITH RELIEF OF NAUSEA AND ITCHING.
--- NOTE | 2024-05-16 14:40 | ANE.PACU2 ---
Inpatient post-anesthesia follow up: Airway intact: Yes Vital signs: Temperature 98.1 F Pulse Rate 62 Respiratory Rate 16 Blood Pressure 191/87 Pulse Oximetry 96 Oxygen Delivery Me thod Room Air Oxygen Flow Rate 6 Fraction of Inspir ed Oxygen Hydration adequate: Yes Nausea and vomiting: No Pain level: 1 Mental status: Baseline
[2024-05-17 09:29] LABS: Glucose Point of Care 128 mg/dL (70-110)
[2024-05-17 09:29] LABS: Glucose Point of Care 159 mg/dL (70-110)
== END 2024-05-16 14:40 | disposition home or self-care (01) ==
PROVIDERS: PCP Family Medicine; Visit Provider Obstetrics & Gynecology
PROC: 0UJD8ZZ Inspection of Uterus and Cervix, Via Natural or Artificial Opening Endoscopic (ICD-10-PCS; CPT 58555; principal; 2024-05-16 10:40)
DX: N95.0 Postmenopausal bleeding (principal); N84.0 Polyp of corpus uteri; R87.619 Unspecified abnormal cytological findings in specimens from cervix uteri; Z79.899 Other long term (current) drug therapy; Z79.4 Long term (current) use of insulin; Z88.8 Allergy status to other drugs, medicaments and biological substances; Z88.0 Allergy status to penicillin; Z88.5 Allergy status to narcotic agent; Z90.49 Acquired absence of other specified parts of digestive tract; Z87.891 Personal history of nicotine dependence; E11.9 Type 2 diabetes mellitus without complications; I10 Essential (primary) hypertension; Z86.0100 Personal history of colon polyps, unspecified
CPT/HCPCS: 58558; 36416; 82962; 88305; 93005; J1200; J1885; J2405; J2704; J3010; J3490; J7030

== ENCOUNTER 2024-05-29 08:03 | Outpatient (CLI) | payer MEDICAID, SELFPAY | END 2024-05-29 08:04 | disposition home or self-care (01) | PROVIDERS: PCP Family Medicine; Visit Provider Nurse Practitioner Family | DX: R06.02 Shortness of breath (principal); R94.2 Abnormal results of pulmonary function studies | CPT/HCPCS: 94010; 94726; 94729 ==

== ENCOUNTER 2024-06-11 17:17 | Outpatient (CLI) | payer MEDICAID, SELFPAY ==
[2024-06-11 19:30] LABS: Adenovirus Not Detected (NOT DETECT); Chlamydia Pneumoniae Not Detected (NOT DETECT); Coronavirus 229E,HKU1,NL63,OC4 Not Detected (NOT DETECT); Human Metapneumovirus Not Detected (NOT DETECT); Human Rhinovirus/Enterovirus Not Detected (NOT DETECT); Influenza A Not Detected (NOT DETECT); Influenza A H1 Not Detected (NOT DETECT); Influenza A H1-2009 Not Detected (NOT DETECT); Influenza A H3 Not Detected (NOT DETECT); Influenza B Not Detected (NOT DETECT); Mycoplasma Pneumoniae Not Detected (NOT DETECT); Parainfluenza Virus Type 1 Not Detected (NOT DETECT); Parainfluenza Virus Type 2 Not Detected (NOT DETECT); Parainfluenza Virus Type 3 Not Detected (NOT DETECT); Parainfluenza Virus Type 4 Not Detected (NOT DETECT); Respiratory Syncytial Virus A Not Detected (NOT DETECT); Respiratory Syncytial Virus B Not Detected (NOT DETECT)
[2024-06-11 19:42] LABS: SARS-COV-2 Detected (NOT DETECT)
== END 2024-06-11 17:18 | disposition home or self-care (01) ==
LOC: LAB 17:24
PROVIDERS: PCP Family Medicine; Visit Provider Nurse Practitioner Family
DX: J06.9 Acute upper respiratory infection, unspecified (principal)
CPT/HCPCS: 87486; 87581; 87633

== ENCOUNTER 2024-10-17 09:25 | Outpatient (CLI) | payer MEDICARE, MEDICAID, SELFPAY ==
[2024-10-17 10:53] LABS: Estmated Average Glucose 134; Hemoglobin A1C 6.3 % (4.0-6.0)
[2024-10-17 11:27] LABS: Alanine Aminotransferase 16 U/L (0-33); Albumin Level 4.3 g/dL (3.5-5.2); Alkaline Phosphatase 85 U/L (35-105); Anion Gap 14.3 (5-19); Aspartate Amino Transferase 18 U/L (0-32); Blood Urea Nitrogen 11 mg/dL (8-23); Calcium 9.8 mg/dL (8.5-10.5); Carbon Dioxide 30 mmol/L (22-29); Chloride 100 mmol/L (98-107); Cholesterol 222 mg/dL (0-200); Globulin 3.3 g/dL (1.3-4.6); Glucose 64 mg/dL (65-115); HDL Cholesterol 50 mg/dL (60-100); Osmolality Calculated 285 mOsm/kg (285-295); Potassium 5.3 mmol/L (3.5-5.1); Sodium 139 mmol/L (136-145); Total Protein 7.6 g/dL (6.6-8.7); Triglycerides 176 mg/dL (0-150)
[2024-10-17 11:29] LABS: Creatinine Urine, Random 44 mg/dL (28-217); Microalbum Creatinine Ratio Ur 23 mg/dL (0-20)
== END 2024-10-17 09:26 | disposition home or self-care (01) ==
LOC: LAB 09:31
PROVIDERS: PCP Family Medicine; Visit Provider Internal Medicine
DX: D35.00 Benign neoplasm of unspecified adrenal gland (principal); E11.9 Type 2 diabetes mellitus without complications
CPT/HCPCS: 36415; 80053; 80061; 82044; 83036

== ENCOUNTER 2024-10-18 16:25 | Outpatient (CLI) | payer MEDICARE, MEDICAID, SELFPAY ==
[2024-10-18 17:09] LABS: Alanine Aminotransferase 13 U/L (0-33); Albumin Level 4.1 g/dL (3.5-5.2); Alkaline Phosphatase 82 U/L (35-105); Anion Gap 16.6 (5-19); Aspartate Amino Transferase 14 U/L (0-32); Blood Urea Nitrogen 12 mg/dL (8-23); Calcium 9.1 mg/dL (8.5-10.5); Carbon Dioxide 27 mmol/L (22-29); Chloride 90 mmol/L (98-107); Globulin 3.2 g/dL (1.3-4.6); Glucose 164 mg/dL (65-115); Osmolality Calculated 273 mOsm/kg (285-295); Potassium 3.6 mmol/L (3.5-5.1); Sodium 130 mmol/L (136-145); Total Protein 7.3 g/dL (6.6-8.7)
== END 2024-10-18 16:26 | disposition home or self-care (01) ==
PROVIDERS: PCP Family Medicine; Visit Provider Internal Medicine
DX: E11.9 Type 2 diabetes mellitus without complications (principal)
CPT/HCPCS: 36415; 80053

== ENCOUNTER 2024-11-03 18:23 | Emergency (ER) | payer OTHER, MEDICAID, SELFPAY ==
[2024-11-03 18:27] VITALS: PULSE 120; RESP 16; TEMP 36.8; O2SAT 97
[2024-11-03 18:37] VITALS: BP 216/117
--- NOTE | 2024-11-03 18:46 | XRR_ITS ---
PROCEDURE INFORMATION: Exam: XR Left Hand Exam date and time: 11/03/2024 7:05 PM Age: 64 years old Clinical indication: Injury or trauma; Puncture wound to left hand by screwdriver TECHNIQUE: Imaging protocol: Radiologic exam of the left hand. Views: 3 or more views. COMPARISON: No relevant prior studies available. FINDINGS: Bones/joints: No fracture or other acute abnormality. Two small nonacute ossicles about the medial side of the 5th MCP joint. Joint spaces are unremarkable. Soft tissues: Normal. XR/XR hand LT min 3V* [id number] IMPRESSION: No acute findings.
--- NOTE | 2024-11-03 19:58 | ECG_ITS ---
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 Measurements Intervals [place] Rate: 90 P: 52 GA: 154 QRS: -9 QRSD: 88 T: 41 QT: 335 QTc: 410 Interpretive Statements SINUS RHYTHM INFERIOR MYOCARDIAL INFARCTION , PROBABLY OLD [40+ ms Q WAVE AND/OR ST/T ABNORMALITY IN II/aVF] INTERPRETATION BASED ON A DEFAULT AGE OF 40 YEARS Compared to ECG 05/16/2024 10:46:33 Myocardial infarct finding now present Sinus bradycardia no longer present Electronically Signed On 11-05-2024 08:14:06 CDT by Jah Brown M.D. [email or web address]
--- NOTE | 2024-11-03 19:58 | XRR_ITS ---
PROCEDURE INFORMATION: Exam: XR Chest Exam date and time: 11/03/2024 8:29 PM Age: 64 years old Clinical indication: Pain; Chest pressure; Additional info: Chest pain in wr TECHNIQUE: Imaging protocol: Radiologic exam of the chest. Views: 1 view. COMPARISON: CT lung screening [id number] 03/07/2024 9:14 AM FINDINGS: Lungs: Low lung volumes with basilar atelectasis. No pulmonary consolidation. Pleural spaces: No pleural effusion or pneumothorax. Heart/Mediastinum: Heart size is within normal limits. Vasculature: Atherosclerotic calcifications of the aorta are noted. Bones/joints: No acute osseous abnormalities are seen. XR/XR chest 1V portable [id number] IMPRESSION: No acute cardiopulmonary disease.
[2024-11-03 20:19] VITALS: BP 198/123
[2024-11-03 20:19] LABS: Hematocrit 42.9 % (36-47); Hemoglobin 14.60 g/dL (11.27-16.99); Mean Corpuscular HGB Conc 34.0 g/dL (30-55); Mean Corpuscular Hemoglobin 29.4 pg (27-33); Mean Corpuscular Volume 86.3 fl (85-98); Nucleated Red Blood Cells % 0 %; Platelet Count 230 10^3/cmm (157-399); Red Blood Count 4.97 10^6/uL (3.85-5.65); White Blood Count 7.37 10^3/uL (3.29-11.43)
[2024-11-03] MEDS: tetanus-dipt-pertussis 0.5 mL SDV IM (20:20)
[2024-11-03] MEDS: fentaNYL 50 mcg/mL INJ 2mL 25 MCG IVP (20:21)
[2024-11-03 20:37] LABS: Troponin(5th) Baseline 9 ng/L (0-10)
[2024-11-03 20:38] LABS: Alanine Aminotransferase 16 U/L (0-33); Albumin Level 4.6 g/dL (3.5-5.2); Alkaline Phosphatase 89 U/L (35-105); Anion Gap 16.0 (5-19); Aspartate Amino Transferase 18 U/L (0-32); Blood Urea Nitrogen 14 mg/dL (8-23); Calcium 9.6 mg/dL (8.5-10.5); Carbon Dioxide 27 mmol/L (22-29); Chloride 100 mmol/L (98-107); Creatinine Clr Calc Pharmacy 77.9769; Globulin 2.9 g/dL (1.3-4.6); Glucose 98 mg/dL (65-115); Osmolality Calculated 288 mOsm/kg (285-295); Potassium 4.0 mmol/L (3.5-5.1); Sodium 139 mmol/L (136-145); Total Protein 7.5 g/dL (6.6-8.7)
[2024-11-03 21:02] VITALS: PULSE 107; O2SAT 98
[2024-11-03] MEDS: lidocaine-epi 2% 20 mL INJ INJECTION (21:35)
[2024-11-03 22:00] VITALS: BP 230/122
[2024-11-03] MEDS: oxyCODONE-APAP 5-325 mg Tablet 2 TAB PO (22:32)
--- NOTE | 2024-11-03 22:34 | W.ED.EXTPRO ---
Documented by User: [email or web address] Mcintyre 11/03/24 22:43 HPI - Extremity Problem General: Chief complaint: Extremity Injury, Upper Stated complaint: Left Hand Injured Time Seen by Provider: 11/03/24 19:27 Source: patient Mode of arrival: ambulatory Limitations: no limitations History of Present Illness: Patient is a 64-year-old female who presents emergency department after left hand injury. States that she was using a screwdriver, evidently stabbed between the webspace of her left thumb and index finger. Bleeding controlled on arrival, she states that she could see a hole all the way through the other side of her hand. Unsure of her last tetanus. She is hypertensive with triage at 216/117, as well as tachycardic. At the time of my examination in the room, she starts complaining of chest pain and states that she has a history of heart attack and that this feels similar. She is notably anxious at this time. MD Complaint: extremity pain (Left hand, laceration) Associated symptoms: Reports chest pain; Deny fever(s) or rash Related Data Home Medications ?Medication ?Instructions ?Recorded ?Confirmed clonidine HCl 0.3 mg tablet 0.3 mg PO QID 02/25/22 05/22/24 potassium chloride 10 mEq 10 meq PO PRN PRN Hypokalemia 12/21/22 05/22/24 tablet,extended release insulin glargine 100 unit/mL 75 unit SUBCUT DAILY 04/26/23 05/22/24 subcutaneous solution (Lantus U-100 Insulin) Previous Rx's ?Medication ?Instructions ?Recorded pen needle, diabetic 32 gauge x #100 ea 07/18/2303/30 (BD Ultra-Fine Micro Pen Needle) blood-glucose,cloth presser,cont #1 ea 08/30/23 (Dexcom G7 Environmental Conservation Officer) oxycodone-acetaminophen 5 mg-325 1 tab PO BID PRN pain #10 tabs 05/16/24 mg tablet (Percocet) insulin aspart U-100 100 unit/mL 25 unit (0.25 mL) SUBCUT TID #30 mL 07/11/24 (3 mL) subcutaneous pen blood-glucose sensor (Dexcom G7 #9 ea 09/02/24 Sensor device) doxycycline hyclate 100 mg tablet 100 mg PO BID 5 days #10 tabs 11/03/24 Allergies Allergy/AdvReac Type Severity Reaction Status Date / Time amlodipine Allergy ADR-Headach Verified 05/22/24 14:13 e cephalexin Allergy Unknown Verified 05/22/24 14:13 hydralazine Allergy Unknown Verified 05/22/24 14:13 hydromorphone Allergy ADR-Vomitin Verified 05/22/24 14:13 g insulin lispro Allergy Unknown Verified 07/10/24 14:49 lisinopril Allergy ADR-Cough Verified 05/22/24 14:13 metoprolol Allergy ADV-Weaknes Verified 05/22/24 14:13 s Penicillins Allergy Unknown Verified 05/22/24 14:13 tramadol Allergy ADR-Headach Verified 05/22/24 14:13 e morphine AdvReac Intermediate ADR-Abdominal Verified 05/22/24 14:13 Pain TONY Inhibitors AdvReac Mild ADR-Cough Verified 05/22/24 14:13 Review of Systems General: Reports: 10 or more systems reviewed and unremarkable except in HPI and below Const: Denies: fever(s), chills or fatigue Eyes: Denies: change in vision ENMT: Denies: throat pain, ear or mastoid pain or nasal discharge Card: Reports: chest pain; Denies: palpitations, swelling of feet/ankles or lightheadedness Resp: Denies: dyspnea, productive cough or wheezing GI: Denies: abdominal pain, nausea, vomiting, diarrhea or constipation : Denies: flank pain, difficulty voiding, dysuria or urinary frequency Musc: Reports: extremity pain (Left hand); Denies: neck pain, back pain or joint pain Skin/Breast: Reports: new lesions (Laceration left hand); Denies: rash Neuro: Denies: headache(s), numbness in extremities or weakness in extremities PFSH ED PFSH: Medical History History of colon polyps Diabetes Hypertension Surgical History Hx of section Hx of cholecystectomy Hx of colectomy Social History Smoking and tobacco/nicotine status: former use of tobacco/nicotine Physical Exam Const: COMMON NORMALS: patient oriented x3 and no limitations GENERAL APPEARANCE: cooperative, well developed and anxious ORIENTATION/CONSCIOUSNESS: Yes awake, Yes oriented to person, Yes oriented to place and Yes oriented to time HENMT: COMMON NORMALS: normocephalic, atraumatic and hearing grossly normal bilaterally HEAD & SCALP: normocephalic and atraumatic Eye: COMMON NORMALS: Equal, round and reactive pupils present, EOMs intact bilaterally and conjunctivae normal CONJUNCTIVA: Yes conjunctivae normal PUPIL: Yes Equal, round and reactive pupils present Neck/C-Spine: COMMON NORMALS: full ROM, supple and no JVD Resp: COMMON NORMALS: normal respiratory effort, No retractions, No use of accessory muscles and clear to auscultation bilaterally AUSCULTATION: clear to auscultation bilaterally Cardio: COMMON NORMALS: no JVD, regular rhythm, No clicks present (Cardio), No murmurs present (Cardio) and No rub (Cardio) RATE: tachycardic RHYTHM: regular rhythm Extremity: NARRATIVE EXTREMITY EXAM: Puncture wound to palmar aspect of left hand, between thumb and index finger with no active bleeding. Tenderness to palpation to the dorsum of the left hand as well. This is not a through and through injury. Distal sensations are intact, distal strength is intact. Neuro: COMMON NORMALS: patient oriented x3, moves all extremities, no focal motor deficits and no sensory deficits noted SENSORIUM/ORIENTATION: Yes oriented to person, Yes oriented to place and Yes oriented to time Psych: APPEARANCE: Yes grossly normal ATTITUDE: Yes paranoid MOOD & AFFECT: Yes anxious Skin: COMMON NORMALS: no rashes or lesions noted GENERAL SKIN EXAM: no rashes or lesions noted Procedures Laceration Laceration 1: Site: hand Side (If applicable): left Size (cm): 1 Description: linear Depth: simple, single layer Local Anesthetic: lidocaine 1% and with epi Amount of anesthesia used (mL): 8 Pre-repair: wound explored, irrigated extensively and deep structures intact Skin layer closed with: nylon Size (cm): 5-0 Number of sutures: 1 Technique: simple, interrupted Course Vital Signs: Vital signs: Vital Signs Temperature 98.3 F 11/03/24 18:27 Pulse Rate 107 H 11/03/24 21:02 Respiratory Rate 16 11/03/24 18:27 Blood Pressure 230/122 11/03/24 22:00 Pulse Oximetry 98 11/03/24 21:02 Oxygen Delivery Me thod Room Air 11/03/24 21:02 MDM - Extremity (Nontraumatic) Medical Decision Making Patient presented for puncture wound laceration to her left hand after injuring it with a screwdriver. At time of history taking, she begins complaining of chest pain and is notably anxious, also stating she was having palpitations. Blood pressure has been elevated throughout ED stay, and she states she is allergic to virtually every antihypertensive medication and currently takes 0.3 clonidine 4 times a day. She also states that she has whitecoat syndrome and that it will be very hard to get her blood pressure down. Due to her chest pain and palpitations we will go any signs of ACS, EKG reviewed with physician showing normal sinus rhythm no acute ST segment changes. Troponin was, chest x-ray normal, and the rest of her labs normal. She was given clonidine here, which did not seem to help much. She was then given Xanax, which she states has helped her calm down. Heart rate does seem to normalize, but she has still remained with blood pressure over 200 systolic. Daughter shows up and states that she will be here all night if we were trying to control her blood pressure as her whitecoat syndrome is the issue. She initially would not let me clean her wound, however after convincing her she allows me to numb up the area and flush it out copiously with saline. 1 suture was placed, bleeding was controlled and her tetanus was updated. Sterile dressing was applied and she is started on doxycycline as she is allergic to other antibiotics. She is also allergic to virtually every pain medicine, but states she has taken oxycodone in the past which seem to work for her. Informed her that her blood pressure is still dangerously high for discharge home but she is adamant, along with daughter, that they discharge home as her blood pressure is only high because of her whitecoat syndrome. ACS ruled out, rest of her labs normal, and antibiotics sent to the pharmacy and she is sent home with a couple pain medications for breakthrough pain. Lab Data 11/03/24 20:11 11/03/24 20:11 Radiology Impressions Hand X-Ray 11/03/24 18:46 IMPRESSION: No acute findings. Chest X-Ray 11/03/24 19:58 IMPRESSION: No acute cardiopulmonary disease. Laboratory Results WBC 7.37 10^3/uL (3.29-11.43) 11/03/24 20:11 RBC 4.97 10^6/uL (3.85-5.65) 11/03/24 20:11 Hgb 14.60 g/dL (11.27-16.99) 11/03/24 20:11 Hct 42.9 % (36-47) 11/03/24 20:11 MCV 86.3 fl (85-98) 11/03/24 20:11 MCH 29.4 pg (27-33) 11/03/24 20:11 MCHC 34.0 g/dL (30-55) 11/03/24 20:11 RDW 13.1 % (12.1-15.1) 11/03/24 20:11 Plt Count 230 10^3/cmm (157-399) 11/03/24 20:11 MPV 11.5 fL (7.4-10.4) H 11/03/24 20:11 Neut % (Auto) 61.8 % 11/03/24 20:11 Lymph % (Auto) 25.8 % 11/03/24 20:11 [place] % (Auto) 8.8 % 11/03/24 20:11 Eos % (Auto) 3.0 % 11/03/24 20:11 Baso % (Auto) 0.5 % 11/03/24: Neut # (Auto) 4.55 10^3/uL (1.8-7.7) 11/03/24 20:11 Lymph # (Auto) 1.9 10^3/uL (0.8-4.8) 11/03/24 20:11 [place] # (Auto) 0.7 10^3/uL (0.2-0.9) 11/03/24 20:11 Eos # (Auto) 0.2 10^3/uL (0.0-0.8) 11/03/24 20: Baso # (Auto) 0.0 10^3/uL (0.0-0.1) 11/03/24 20: Nucleated RBC % (auto) 0 % 11/03/24: Nucleated RBCs # 0.0 /100WBC 11/03/24 20:11 Sodium 139 mmol/L (136-145) 11/03/24 20: Potassium 4.0 mmol/L (3.5-5.1) 11/03/24 20:11 Chloride 100 mmol/L (98-107) 11/03/24 20:11 Carbon Dioxide 27 mmol/L (22-29) 11/03/24 20:11 Anion Gap 16.0 (5-19) 11/03/24 20:11 BUN 14 mg/dL (8-23) 11/03/24 20:11 Creatinine 0.8 mg/dL (0.5-0.9) 11/03/24 20:11 GFR Calculation 72.0 mL/min (90-130) L 11/03/24 20:11 Glucose 98 mg/dL (65-115) 11/03/24 20:11 Calculated Osmolality 288 mOsm/kg (285-295) 11/03/24 20:11 Calcium 9.6 mg/dL (8.5-10.5) 11/03/24 20:11 Total Bilirubin 0.3 mg/dL (0.15-1.2) 11/03/24 20:11 AST 18 U/L (0-32) 11/03/24 20:11 ALT 16 U/L (0-33) 11/03/24 20:11 Alkaline Phosphatase 89 U/L (35-105) 11/03/24 20:11 Troponin T Baseline 9 ng/L (0-10) 11/03/24 20:11 Total Protein 7.5 g/dL (6.6-8.7) 11/03/24 20:11 Albumin 4.6 g/dL (3.5-5.2) 11/03/24 20:11 Globulin 2.9 g/dL (1.3-4.6) 11/03/24 20:11 All radiology interpretation(s) finalized by discharge Discharge Plan Discharge Patient Disposition: Home Clinical Impression: Anxiety Puncture wound of hand, left Qualifiers: Encounter type: initial encounter Foreign body presence: without foreign body Qualified Code(s): S61.432A - Puncture wound without foreign body of left hand, initial encounter Hypertension Qualifiers: Hypertension type: primary hypertension Qualified Code(s): I10 - Essential (primary) hypertension Condition: Stable Prescriptions: New doxycycline hyclate 100 mg tablet 100 mg PO BID 5 Days Qty: 10 0RF No Action clonidine HCl 0.3 mg tablet 0.3 mg PO QID potassium chloride 10 mEq tablet extended release 10 meq PO PRN PRN (Reason: Hypokalemia) insulin glargine [Lantus U-100 Insulin] 100 unit/mL solution 75 unit SUBCUT DAILY (DME) pen needle, diabetic [BD Ultra-Fine Micro Pen Needle] 32 gauge x 1/4 needle See Rx Instructions .Route Qty: 100 0RF Rx Instructions: As directed TID (DME) Dexcom G7 Environmental Conservation Officer Misc See Rx Instructions .ROUTE .COMPLEX Qty: 1 0RF Dose Instruction: USE DIRECTED Rx Instructions: USE DIRECTED insulin aspart U-100 100 unit/mL (3 mL) insulin pen 25 unit SUBCUT TID Qty: 30 6RF Rx Instructions: PA approved for one year ending on 07/10/2025 (DME) Dexcom G7 Sensor Device See Rx Instructions .ROUTE .COMPLEX Qty: 9 0RF Dose Instruction: USE DIRECTED Rx Instructions: USE DIRECTED oxycodone-acetaminophen [Percocet] 5-325 mg tablet 1 tab PO BID PRN (Reason: pain) Qty: 10 0RF Discharge Orders: Discharge ED (Routine); Ordered 11/03/24 Ordered By: Bryan Stoner Referrals: Ben Hernández MD [Primary Care Provider, [facility]] Patient Instructions: Patient Portal & Sina Instructions Activity Restrictions/Additional Instructions: Hand wound care Patient: Outpatient with puncture wound of the left hand, irrigated and closed with one suture. A sterile dressing was placed. Hand X-ray showed no fracture or foreign body. Chest pain workup was negative; elevated blood pressure and heart rate are believed related to anxiety. Wound care at home - Keep the current sterile dressing on and dry for the first 24 hours unless it becomes wet or soiled. After 24 hours, it is safe to gently get the area wet in the shower; avoid soaking (no baths, pools, or dishwater) until the suture is removed and the skin is sealed. - Once daily after the first 24 hours: 1) Wash hands. 2) Gently rinse the wound with clean tap water; mild soap on surrounding skin is okay. Do not scrub the wound. 3) Pat dry. 4) Apply a thin layer of plain petrolatum (Vaseline). Routine antibiotic ointment is not required for clean, simple wounds. 5) Cover with a clean, nonstick occlusive dressing (e.g., Telfa or similar). Maintain a moist, covered environment to promote healing. - Do not use iodine, hydrogen peroxide, or alcohol on the wound; these can harm healing tissue. - Elevate the hand above heart level when possible during the first 48 hours to reduce swelling. - Gentle rimyg-gk-durduf of fingers several times a day to prevent stiffness, avoiding stress on the suture line. Pain control - Acetaminophen as needed per label. If NSAIDs are used and previously tolerated, use the lowest effective dose with food unless a clinician has advised against them. Suture removal - Plan for suture removal from the hand in 10?14 days, barring signs of infection or wound separation. Remove at 10 days if edges are well-healed and tension is low; up to 14 days if the area is under tension or healing more slowly. Antibiotics and tetanus - No routine antibiotics are needed for this clean, simple puncture that was irrigated and closed, unless signs of infection develop. - If tetanus vaccination is not up to date (booster within 10 years), arrange for a booster as soon as possible. Activity and protection - Avoid heavy gripping, lifting >5?10 lb, or contact activities with the injured hand until the suture is removed and the wound is healed. - Keep the dressing clean and dry. Replace if wet or soiled. Chest pain, blood pressure, and heart rate - Today?s cardiac evaluation was negative for acute heart problems. Symptoms are believed related to anxiety. Continue home medications as prescribed. - Practice stress-reduction techniques (slow deep breathing, brief walks as tolerated). - If a home blood pressure cuff is available, check daily at a consistent time; share readings at follow-up. Follow-up - Primary care: Schedule a visit within 1 week to reassess blood pressure/heart rate, review wound healing, and coordinate suture removal timing. - Cardiology: Continue established follow-up as planned. Early follow-up after a negative ED chest-pain evaluation supports risk-factor management and symptom review. - Wound check/suture removal: 10?14 days from today (can be done by primary care or the treating clinic). Strict return precautions - Wound: Fever >=00.4?F (38?C); rapidly increasing pain; spreading redness; warmth; swelling; pus-like drainage; red streaks up the hand/arm; wound edges opening; numbness, tingling, loss of motion, or color change of fingers. - Systemic: Chills, vomiting, or feeling very unwell. - Chest symptoms: New or worsening chest pain, pressure, or tightness; pain that spreads to the arm, jaw, or back; shortness of breath; fainting; severe palpitations; or any symptom that feels like a heart emergency?call emergency services. - Blood pressure/heart rate: Persistent severe headache, vision changes, chest pain, shortness of breath, or confusion with very high readings. Education summary (what to expect) - Mild soreness and swelling are common for a few days. Some clear or slightly bloody drainage on the dressing can occur early on. - The wound should look the same or better each day. A moist, covered environment improves healing and does not increase infection risk when cleaned properly. Print Language: Japanese Coding Level of Care Code ED Stucc[employer] Mason for Chg Fwd Documented by User: Sonny Hall DO 11/03/24 23:06 HPI - Extremity Problem General: Chief complaint: Extremity Injury, Upper Stated complaint: Left Hand Injured Time Seen by Provider: 11/03/24 19:27 Related Data Home Medications ?Medication ?Instructions ?Recorded ?Confirmed clonidine HCl 0.3 mg tablet 0.3 mg PO QID 02/25/22 05/22/24 potassium chloride 10 mEq 10 meq PO PRN PRN Hypokalemia 12/21/22 05/22/24 tablet,extended release insulin glargine 100 unit/mL 75 unit SUBCUT DAILY 04/26/23 05/22/24 subcutaneous solution (Lantus U-100 Insulin) Previous Rx's ?Medication ?Instructions ?Recorded pen needle, diabetic 32 gauge x #100 ea 07/18/2303/30 (BD Ultra-Fine Micro Pen Needle) blood-glucose,cloth presser,cont #1 ea 08/30/23 (Dexcom G7 Environmental Conservation Officer) oxycodone-acetaminophen 5 mg-325 1 tab PO BID PRN pain #10 tabs 02/20/25 mg tablet (Percocet) insulin aspart U-100 100 unit/mL 25 unit (0.25 mL) SUBCUT TID #30 mL 07/11/24 (3 mL) subcutaneous pen blood-glucose sensor (Dexcom G7 #9 ea 09/02/24 Sensor device) doxycycline hyclate 100 mg tablet 100 mg PO BID 5 days #10 tabs 11/03/24 Allergies Allergy/AdvReac Type Severity Reaction Status Date / Time amlodipine Allergy ADR-Headach Verified 05/22/24 14:13 e cephalexin Allergy Unknown Verified 05/22/24 14:13 hydralazine Allergy Unknown Verified 05/22/24 14:13 hydromorphone Allergy ADR-Vomitin Verified 05/22/24 14:13 g insulin lispro Allergy Unknown Verified 07/10/24 14:49 lisinopril Allergy ADR-Cough Verified 05/22/24 14:13 metoprolol Allergy ADV-Weaknes Verified 05/22/24 14:13 s Penicillins Allergy Unknown Verified 05/22/24 14:13 tramadol Allergy ADR-Headach Verified 05/22/24 14:13 e morphine AdvReac Intermediate ADR-Abdominal Verified 05/22/24 14:13 Pain TONY Inhibitors AdvReac Mild ADR-Cough Verified 05/22/24 14:13 PFSH ED PFSH: Medical History History of colon polyps Diabetes Hypertension Surgical History Hx of section Hx of cholecystectomy Hx of colectomy Social History Smoking and tobacco/nicotine status: former use of tobacco/nicotine Course Vital Signs: Vital signs: Vital Signs Temperature 98.3 F 11/03/24 18:27 Pulse Rate 107 H 11/03/24 21:02 Respiratory Rate 16 11/03/24 18:27 Blood Pressure 230/122 11/03/24 22:00 Pulse Oximetry 98 11/03/24 21:02 Oxygen Delivery Me thod Room Air 11/03/24 21:02 MDM - Extremity (Nontraumatic) Medical Decision Making Patient presented for puncture wound laceration to her left hand after injuring it with a screwdriver. At time of history taking, she begins complaining of chest pain and is notably anxious, also stating she was having palpitations. Blood pressure has been elevated throughout ED stay, and she states she is allergic to virtually every antihypertensive medication and currently takes 0.3 clonidine 4 times a day. She also states that she has whitecoat syndrome and that it will be very hard to get her blood pressure down. Due to her chest pain and palpitations we will go any signs of ACS, EKG reviewed with physician showing normal sinus rhythm no acute ST segment changes. Troponin was, chest x-ray normal, and the rest of her labs normal. She was given clonidine here, which did not seem to help much. She was then given Xanax, which she states has helped her calm down. Heart rate does seem to normalize, but she has still remained with blood pressure over 200 systolic. Daughter shows up and states that she will be here all night if we were trying to control her blood pressure as her whitecoat syndrome is the issue. She initially would not let me clean her wound, however after convincing her she allows me to numb up the area and flush it out copiously with saline. 1 suture was placed, bleeding was controlled and her tetanus was updated. Sterile dressing was applied and she is started on doxycycline as she is allergic to other antibiotics. She is also allergic to virtually every pain medicine, but states she has taken oxycodone in the past which seem to work for her. Informed her that her blood pressure is still dangerously high for discharge home but she is adamant, along with daughter, that they discharge home as her blood pressure is only high because of her whitecoat syndrome. ACS ruled out, rest of her labs normal, and antibiotics sent to the pharmacy and she is sent home with a couple pain medications for breakthrough pain. Patient was originally seen by Mr. Herbie PA-C. I agree with his history, evaluation, and management. Lab Data 11/03/24 20:11 11/03/24 20:11 Radiology Impressions Hand X-Ray 11/03/24 18:46 IMPRESSION: No acute findings. Chest X-Ray 11/03/24 19:58 IMPRESSION: No acute cardiopulmonary disease. Laboratory Results WBC 7.37 10^3/uL (3.29-11.43) 11/03/24 20:11 RBC 4.97 10^6/uL (3.85-5.65) 11/03/24 20:11 Hgb 14.60 g/dL (11.27-16.99) 11/03/24 20:11 Hct 42.9 % (36-47) 11/03/24 20:11 MCV 86.3 fl (85-98) 11/03/24 20:11 MCH 29.4 pg (27-33) 11/03/24 20:11 MCHC 34.0 g/dL (30-55) 11/03/24 20:11 RDW 13.1 % (12.1-15.1) 11/03/24 20:11 Plt Count 230 10^3/cmm (157-399) 11/03/24 20:11 MPV 11.5 fL (7.4-10.4) H 11/03/24 20:11 Neut % (Auto) 61.8 % 11/03/24 20:11 Lymph % (Auto) 25.8 % 11/03/24 20: [place] % (Auto) 8.8 % 11/03/24 20:11 Eos % (Auto) 3.0 % 11/03/24 20:11 Baso % (Auto) 0.5 % 11/03/24 20:11 Neut # (Auto) 4.55 10^3/uL (1.8-7.7) 11/03/24 20: Lymph # (Auto) 1.9 10^3/uL (0.8-4.8) 11/03/24 20:11 [place] # (Auto) 0.7 10^3/uL (0.2-0.9) 11/03/24 20: Eos # (Auto) 0.2 10^3/uL (0.0-0.8) 11/03/24 20: Baso # (Auto) 0.0 10^3/uL (0.0-0.1) 11/03/24 20: Nucleated RBC % (auto) 0 % 11/03/24 20: Nucleated RBCs # 0.0 /100WBC 11/03/24 20:11 Sodium 139 mmol/L (136-145) 11/03/24 20: Potassium 4.0 mmol/L (3.5-5.1) 11/03/24 20: Chloride 100 mmol/L (98-107) 11/03/24 20:11 Carbon Dioxide 27 mmol/L (22-29) 11/03/24 20:11 Anion Gap 16.0 (5-19) 11/03/24 20:11 BUN 14 mg/dL (8-23) 11/03/24 20:11 Creatinine 0.8 mg/dL (0.5-0.9) 11/03/24 20:11 GFR Calculation 72.0 mL/min (90-130) L 11/03/24 20:11 Glucose 98 mg/dL (65-115) 11/03/24 20:11 Calculated Osmolality 288 mOsm/kg (285-295) 11/03/24 20:11 Calcium 9.6 mg/dL (8.5-10.5) 11/03/24 20:11 Total Bilirubin 0.3 mg/dL (0.15-1.2) 11/03/24 20:11 AST 18 U/L (0-32) 11/03/24 20:11 ALT 16 U/L (0-33) 11/03/24 20:11 Alkaline Phosphatase 89 U/L (35-105) 11/03/24 20:11 Troponin T Baseline 9 ng/L (0-10) 11/03/24 20:11 Total Protein 7.5 g/dL (6.6-8.7) 11/03/24 20:11 Albumin 4.6 g/dL (3.5-5.2) 11/03/24 20:11 Globulin 2.9 g/dL (1.3-4.6) 11/03/24 20:11 Discharge Plan Discharge Patient Disposition: Home Clinical Impression: Anxiety Puncture wound of hand, left Qualifiers: Encounter type: initial encounter Foreign body presence: without foreign body Qualified Code(s): S61.432A - Puncture wound without foreign body of left hand, initial encounter Hypertension Qualifiers: Hypertension type: primary hypertension Qualified Code(s): I10 - Essential (primary) hypertension Condition: Stable Prescriptions: New doxycycline hyclate 100 mg tablet 100 mg PO BID 5 Days Qty: 10 0RF No Action clonidine HCl 0.3 mg tablet 0.3 mg PO QID potassium chloride 10 mEq tablet extended release 10 meq PO PRN PRN (Reason: Hypokalemia) insulin glargine [Lantus U-100 Insulin] 100 unit/mL solution 75 unit SUBCUT DAILY (DME) pen needle, diabetic [BD Ultra-Fine Micro Pen Needle] 32 gauge x 1/4 needle See Rx Instructions .Route Qty: 100 0RF Rx Instructions: As directed TID (DME) Dexcom G7 Environmental Conservation Officer Misc See Rx Instructions .ROUTE .COMPLEX Qty: 1 0RF Dose Instruction: USE DIRECTED Rx Instructions: USE DIRECTED insulin aspart U-100 100 unit/mL (3 mL) insulin pen 25 unit SUBCUT TID Qty: 30 6RF Rx Instructions: PA approved for one year ending on 07/10/2025 (DME) Dexcom G7 Sensor Device See Rx Instructions .ROUTE .COMPLEX Qty: 9 0RF Dose Instruction: USE DIRECTED Rx Instructions: USE DIRECTED oxycodone-acetaminophen [Percocet] 5-325 mg tablet 1 tab PO BID PRN (Reason: pain) Qty: 10 0RF Discharge Orders: Discharge ED (Routine); Ordered 11/03/24 Ordered By: Bryan Stoner Referrals: Ben Hernández MD [Primary Care Provider, [facility]] Patient Instructions: Patient Portal & Sina Instructions Activity Restrictions/Additional Instructions: Hand wound care Patient: Outpatient with puncture wound of the left hand, irrigated and closed with one suture. A sterile dressing was placed. Hand X-ray showed no fracture or foreign body. Chest pain workup was negative; elevated blood pressure and heart rate are believed related to anxiety. Wound care at home - Keep the current sterile dressing on and dry for the first 24 hours unless it becomes wet or soiled. After 24 hours, it is safe to gently get the area wet in the shower; avoid soaking (no baths, pools, or dishwater) until the suture is removed and the skin is sealed. - Once daily after the first 24 hours: 1) Wash hands. 2) Gently rinse the wound with clean tap water; mild soap on surrounding skin is okay. Do not scrub the wound. 3) Pat dry. 4) Apply a thin layer of plain petrolatum (Vaseline). Routine antibiotic ointment is not required for clean, simple wounds. 5) Cover with a clean, nonstick occlusive dressing (e.g., Telfa or similar). Maintain a moist, covered environment to promote healing. - Do not use iodine, hydrogen peroxide, or alcohol on the wound; these can harm healing tissue. - Elevate the hand above heart level when possible during the first 48 hours to reduce swelling. - Gentle oshia-oe-ajfhtj of fingers several times a day to prevent stiffness, avoiding stress on the suture line. Pain control - Acetaminophen as needed per label. If NSAIDs are used and previously tolerated, use the lowest effective dose with food unless a clinician has advised against them. Suture removal - Plan for suture removal from the hand in 10?14 days, barring signs of infection or wound separation. Remove at 10 days if edges are well-healed and tension is low; up to 14 days if the area is under tension or healing more slowly. Antibiotics and tetanus - No routine antibiotics are needed for this clean, simple puncture that was irrigated and closed, unless signs of infection develop. - If tetanus vaccination is not up to date (booster within 10 years), arrange for a booster as soon as possible. Activity and protection - Avoid heavy gripping, lifting >5?10 lb, or contact activities with the injured hand until the suture is removed and the wound is healed. - Keep the dressing clean and dry. Replace if wet or soiled. Chest pain, blood pressure, and heart rate - Today?s cardiac evaluation was negative for acute heart problems. Symptoms are believed related to anxiety. Continue home medications as prescribed. - Practice stress-reduction techniques (slow deep breathing, brief walks as tolerated). - If a home blood pressure cuff is available, check daily at a consistent time; share readings at follow-up. Follow-up - Primary care: Schedule a visit within 1 week to reassess blood pressure/heart rate, review wound healing, and coordinate suture removal timing. - Cardiology: Continue established follow-up as planned. Early follow-up after a negative ED chest-pain evaluation supports risk-factor management and symptom review. - Wound check/suture removal: 10?14 days from today (can be done by primary care or the treating clinic). Strict return precautions - Wound: Fever >=00.4?F (38?C); rapidly increasing pain; spreading redness; warmth; swelling; pus-like drainage; red streaks up the hand/arm; wound edges opening; numbness, tingling, loss of motion, or color change of fingers. - Systemic: Chills, vomiting, or feeling very unwell. - Chest symptoms: New or worsening chest pain, pressure, or tightness; pain that spreads to the arm, jaw, or back; shortness of breath; fainting; severe palpitations; or any symptom that feels like a heart emergency?call emergency services. - Blood pressure/heart rate: Persistent severe headache, vision changes, chest pain, shortness of breath, or confusion with very high readings. Education summary (what to expect) - Mild soreness and swelling are common for a few days. Some clear or slightly bloody drainage on the dressing can occur early on. - The wound should look the same or better each day. A moist, covered environment improves healing and does not increase infection risk when cleaned properly. Print Language: Japanese Coding Level of Care Code ED [employer] for Shelton Corona
--- NOTE | 2024-11-03 22:35 | PC.NURSE ---
PT REFUSED 2HR EKG. PT REQUESTING TO LEAVE WITH BP 230/122. PT EDUCATED ON RISKS OF ELEVATED BP BY SARBJIT SHANE. PT CHOSE TO LEAVE.
== END 2024-11-03 22:38 | disposition home or self-care (01) ==
PROVIDERS: Emergency Provider Physician Assistant; PCP Family Medicine
DX: S61.432A Puncture wound without foreign body of left hand, initial encounter (principal); F41.9 Anxiety disorder, unspecified; I25.2 Old myocardial infarction; I10 Essential (primary) hypertension; E11.9 Type 2 diabetes mellitus without complications; Z79.899 Other long term (current) drug therapy; Z79.4 Long term (current) use of insulin; Z88.8 Allergy status to other drugs, medicaments and biological substances; Z88.5 Allergy status to narcotic agent; Z88.0 Allergy status to penicillin; Z87.891 Personal history of nicotine dependence; Z23 Encounter for immunization; W27.0XXA Contact with workbench tool, initial encounter
CPT/HCPCS: 12001; 36415; 71045; 73130; 80053; 84484; 85025; 90715; 93005; 96374; 99285; J3010; J9999

== ENCOUNTER 2024-11-07 09:00 | Outpatient (CLI) | payer OTHER, MEDICAID, SELFPAY ==
[2024-11-07 10:39] LABS: Alanine Aminotransferase 12 U/L (0-33); Albumin Level 4.2 g/dL (3.5-5.2); Alkaline Phosphatase 85 U/L (35-105); Anion Gap 15.7 (5-19); Aspartate Amino Transferase 21 U/L (0-32); Blood Urea Nitrogen 10 mg/dL (8-23); Calcium 9.7 mg/dL (8.5-10.5); Carbon Dioxide 28 mmol/L (22-29); Chloride 100 mmol/L (98-107); Globulin 3.5 g/dL (1.3-4.6); Glucose 166 mg/dL (65-115); Osmolality Calculated 291 mOsm/kg (285-295); Potassium 4.7 mmol/L (3.5-5.1); Sodium 139 mmol/L (136-145); Total Protein 7.7 g/dL (6.6-8.7)
[2024-11-07 10:56] LABS: Total Volume Urine 4100 ml
[2024-11-07 11:11] LABS: Creatinine 24 Hour Urine 1230.0 mg/dL (601-1689)
== END 2024-11-07 09:01 | disposition home or self-care (01) ==
PROVIDERS: PCP Family Medicine; Visit Provider Internal Medicine
DX: E11.9 Type 2 diabetes mellitus without complications (principal); D35.00 Benign neoplasm of unspecified adrenal gland
CPT/HCPCS: 36415; 80053; 82530; 82570

== ENCOUNTER 2024-11-19 10:37 | Outpatient (CLI) | payer MEDICARE, SELFPAY ==
[2024-11-19 12:32] LABS: Magnesium 2.2 mg/dL (1.7-2.3)
== END 2024-11-19 10:38 | disposition home or self-care (01) ==
LOC: LAB 10:40
PROVIDERS: PCP Family Medicine; Visit Provider Internal Medicine
DX: E87.6 Hypokalemia (principal); E11.9 Type 2 diabetes mellitus without complications; I10 Essential (primary) hypertension; D35.00 Benign neoplasm of unspecified adrenal gland; E55.9 Vitamin D deficiency, unspecified
CPT/HCPCS: 36415; 82024; 82306; 82627; 83735

== ENCOUNTER 2024-11-20 07:28 | Outpatient (CLI) | payer MEDICARE, SELFPAY ==
[2024-11-20 08:11] LABS: Creatinine 24 Hour Urine 1417.0 mg/dL (601-1689); Total Volume Urine 5450 ml
== END 2024-11-20 07:29 | disposition home or self-care (01) ==
PROVIDERS: PCP Family Medicine; Visit Provider Internal Medicine
DX: D35.00 Benign neoplasm of unspecified adrenal gland (principal); I10 Essential (primary) hypertension; E87.6 Hypokalemia; E11.9 Type 2 diabetes mellitus without complications
CPT/HCPCS: 76830; 82530; 82570

== ENCOUNTER 2024-12-16 08:55 | Outpatient (CLI) | payer MEDICAID, SELFPAY ==
[2024-12-16 09:34] LABS: Anion Gap 17.8 (5-19); Blood Urea Nitrogen 14 mg/dL (8-23); Calcium 9.6 mg/dL (8.5-10.5); Carbon Dioxide 27 mmol/L (22-29); Chloride 100 mmol/L (98-107); Glucose 134 mg/dL (65-115); Osmolality Calculated 292 mOsm/kg (285-295); Potassium 4.8 mmol/L (3.5-5.1); Sodium 140 mmol/L (136-145)
== END 2024-12-16 08:56 | disposition home or self-care (01) ==
LOC: LAB 08:57
PROVIDERS: PCP Family Medicine; Visit Provider Internal Medicine
DX: E24.9 Cushing's syndrome, unspecified (principal); E87.5 Hyperkalemia; E87.6 Hypokalemia
CPT/HCPCS: 36415; 80048

== ENCOUNTER → 2025-01-16 15:13 | Outpatient (BNVA) | payer MEDICARE, MEDICAID, SELFPAY | PROVIDERS: PCP Family Medicine; Visit Provider Internal Medicine Cardiovascular Disease | DX: R79.89 Other specified abnormal findings of blood chemistry (principal); I10 Essential (primary) hypertension; I49.9 Cardiac arrhythmia, unspecified; R00.1 Bradycardia, unspecified; E11.9 Type 2 diabetes mellitus without complications; Z79.4 Long term (current) use of insulin; E87.6 Hypokalemia; Z87.891 Personal history of nicotine dependence; R07.9 Chest pain, unspecified | CPT/HCPCS: 93005; 99214 ==

== ENCOUNTER 2025-01-30 12:51 | Outpatient (CLI) | payer OTHER, MEDICAID, SELFPAY ==
--- NOTE | 2025-01-30 12:56 | MM_ITS ---
WS: [id number] SCREENING MAMMOGRAM WITH CAD HISTORY: SCREENING COMPARISON: 09/17/2021, 12/17/2018 TECHNIQUE: Bilateral craniocaudal and mediolateral oblique views are submitted. Breast composition: There are scattered areas of fibroglandular density. Bilateral arterial calcifications. No suspicious grouping of calcification or architectural distortion. MM/MM scr BI tomosynthesis [id number] IMPRESSION: BI-RADS: 2 - Benign. FOLLOW UP: 1 Year Follow-up
--- NOTE | 2025-01-30 12:56 | XR_ITS ---
WS: [id number] SCREENING DEXA SCAN [employer] CLINICAL INFORMATION: POSTMENOPAUSAL COMPARISON: None. FINDINGS: The L1-L4 bone mineral density measures 0.859 g/cm2. This corresponds to a T score score of -2.7 and Z score of -1.7. Left femoral neck bone mineral density measures 0.792 g/cm2. This corresponds to a T score of -1.7 and Z score of -1.0. Right femoral neck bone mineral density measures 0.816 g/cm2. This corresponds to a T score -1.5of and Z score of -0.8. Mean femoral neck bone mineral density measures 0.804 g/cm2. This corresponds to a T score of -1.6 and Z score of -0.9. XR/XR DEXA axial skeleton* [id number] IMPRESSION: Osteoporosis lumbar spine. Osteopenia femoral necks. Patient's FRAX calculated 10 year probability for major osteoporotic fracture i s 11.9% and osteoporotic hip fracture is 2.2%.
== END 2025-01-30 12:52 | disposition home or self-care (01) ==
LOC: RAD 12:52
PROVIDERS: PCP Family Medicine; Visit Provider Family Medicine
DX: Z12.31 Encounter for screening mammogram for malignant neoplasm of breast (principal); Z13.820 Encounter for screening for osteoporosis; Z78.0 Asymptomatic menopausal state; R92.323 Mammographic fibroglandular density, bilateral breasts; R92.1 Mammographic calcification found on diagnostic imaging of breast; M85.89 Other specified disorders of bone density and structure, multiple sites; M81.8 Other osteoporosis without current pathological fracture
CPT/HCPCS: 77063; 77067; 77080

== ENCOUNTER 2025-02-05 09:13 | Outpatient (CLI) | payer OTHER, MEDICAID, SELFPAY ==
[2025-02-05 10:31] LABS: Hematocrit 40.0 % (36-47); Hemoglobin 13.60 g/dL (11.27-16.99); Mean Corpuscular HGB Conc 34.0 g/dL (30-55); Mean Corpuscular Hemoglobin 29.4 pg (27-33); Mean Corpuscular Volume 86.6 fl (85-98); Nucleated Red Blood Cells % 0 %; Platelet Count 246 10^3/cmm (157-399); Red Blood Count 4.62 10^6/uL (3.85-5.65); White Blood Count 4.99 10^3/uL (3.29-11.43)
[2025-02-05 11:01] LABS: Potassium 4.3 mmol/L (3.5-5.1)
[2025-02-05 11:04] LABS: Estmated Average Glucose 131; Hemoglobin A1C 6.2 % (4.0-6.0)
== END 2025-02-05 09:14 | disposition home or self-care (01) ==
PROVIDERS: PCP Family Medicine; Visit Provider Family Medicine
DX: E11.9 Type 2 diabetes mellitus without complications (principal); E24.9 Cushing's syndrome, unspecified
CPT/HCPCS: 36415; 82024; 82533; 83036; 84132; 85025

== ENCOUNTER → 2025-02-28 09:47 | Outpatient (BNVA) | payer OTHER, MEDICAID, SELFPAY | PROVIDERS: PCP Family Medicine; Visit Provider Internal Medicine Cardiovascular Disease | DX: R07.89 Other chest pain (principal); R79.89 Other specified abnormal findings of blood chemistry; I10 Essential (primary) hypertension; I49.9 Cardiac arrhythmia, unspecified; R00.1 Bradycardia, unspecified; Z87.891 Personal history of nicotine dependence; I48.91 Unspecified atrial fibrillation; R07.9 Chest pain, unspecified; Z79.01 Long term (current) use of anticoagulants; R06.02 Shortness of breath; I25.118 Atherosclerotic heart disease of native coronary artery with other forms of angina pectoris | CPT/HCPCS: 80048; 85025; 85610; 86850; 86900; 99214 ==

== ENCOUNTER → 2025-03-10 14:47 | Outpatient (BNVA) | payer OTHER, MEDICAID, SELFPAY | PROVIDERS: PCP Family Medicine; Visit Provider Internal Medicine Endocrinology, Diabetes & Metabolism | DX: D35.00 Benign neoplasm of unspecified adrenal gland (principal); I10 Essential (primary) hypertension; E87.6 Hypokalemia; E11.9 Type 2 diabetes mellitus without complications; E24.9 Cushing's syndrome, unspecified; E89.6 Postprocedural adrenocortical (-medullary) hypofunction; Z90.89 Acquired absence of other organs | CPT/HCPCS: 99213 ==

== ENCOUNTER 2025-03-26 08:04 | Outpatient (CLI) | payer OTHER, MEDICAID, SELFPAY ==
--- NOTE | 2025-03-26 08:15 | CT_ITS ---
WS: [id number] LDCT LUNG CANCER SCREENING TECHNIQUE: Noncontrast CT of the chest with coronal and sagittal reformatted images. CLINICAL INFORMATION: HX OF TOBACCO USE COMPARISON: 2023 DLP: 80.89 mGy.cm DIvol: Mean CTDIvol: 1.70 (mGy) All CT scans at [facility] use at least one of these dose optimization techniques: automated exposure control; mA and/or kV adjustment per patient size (includes targeted exams where dose is matched to clinical indication); or iterative reconstruction. FINDINGS: Stable small RIGHT perifissural nodules. 3 mm subpleural nodule anterior RIGHT upper lobe. Few additional tiny micronodules in both lungs. Stable pleural-based nodule RIGHT upper lobe anteriorly measuring 4 mm. 4 mm nodule RIGHT upper lobe anteriorly. 4 mm nodule LEFT upper lobe near the hilum. No new suspicious pulmonary parenchymal abnormalities. Aortic calcification. Coronary calcification. No mediastinal or hilar lymphadenopathy. Small esophageal hiatal hernia. Splenic artery calcification. RIGHT adrenal gland is normal. Mild thoracic kyphosis. Hypertrophic changes thoracic spine. LEFT adrenal nodule appears to have been resected. Mild thicke singh LEFT adrenal gland. CT/CT lung screening [id number] IMPRESSION: LUNG-RADS: 2-Benign Appearance or Behavior FOLLOW UP: 12 Month: Continue annual screening with LDCT
== END 2025-03-26 08:05 | disposition home or self-care (01) ==
LOC: RAD 08:05
PROVIDERS: PCP Family Medicine; Visit Provider Family Medicine
DX: Z12.2 Encounter for screening for malignant neoplasm of respiratory organs (principal); Z87.891 Personal history of nicotine dependence; R91.8 Other nonspecific abnormal finding of lung field; K44.9 Diaphragmatic hernia without obstruction or gangrene; M40.204 Unspecified kyphosis, thoracic region; I70.0 Atherosclerosis of aorta; I25.10 Atherosclerotic heart disease of native coronary artery without angina pectoris; Z90.89 Acquired absence of other organs; E27.8 Other specified disorders of adrenal gland
CPT/HCPCS: 71271